=== PATIENT | male | born 1940 | race Caucasian/White ===

== ENCOUNTER 2021-01-24 15:29 | Inpatient (IN) ==
[2021-01-24] MEDS ORDERED: SODIUM CHLORIDE 0.9% 1000ML 1,000 ML IV STA (15:37)
[2021-01-24] MEDS ORDERED: MoRPHine SULFATE 4 MG/ML 1 ML CARP\\VIAL IV PRN (15:37)
[2021-01-24] MEDS ORDERED: ONDANSETRON INJ 2 MG/ML 2 ML VIAL IV STA (15:37)
--- NOTE | 2021-01-24 15:41 | Emergency Department Note ---
Impression & Plan Abdominal pain, Acute duodenitis, Cancer, metastatic to liver, Abnormal LFTs ED Provider Note NAME: TRACY RIGGS AGE: 80 SEX: M : 1940 ARRIVES VIA: Ambulance INFORMANT: Patient, the patient's son ED PROVIDER(S): Samy Sethi DO CHIEF COMPLAINT: Back pain HPI: The patient is an 80-year-old male who presented to the emergency department for an evaluation of low back pain. The patient was seen at his primary care physician's office and was referred to the emergency department. The patient arrived via ambulance. The patient states that he has been having problems with right flank pain for the last couple weeks. He continues to work. The patient denies having any fever. He has no recent trauma. He denies hav ing any nausea or vomiting. He denies having any black or bloody bowel movements. The patient states that the pain goes around to his right lower quadrant. He denies having any lower extremity swelling or pain. He has been taking [id number] medication without relief. The patient states that his pain is moderate to severe and worsens with ambulation as well as palpation over the right lower quadrant. ROS: See above HPI for pertinent positives & negatives. A total of 10 systems reviewed and were otherwise negative. PAST MEDICAL HISTORY: See Below PAST SURGICAL HISTORY: See Below FAMILY HISTORY: See Below SOCIAL HISTORY: See Below HOME MEDICATIONS: See Below ALLERGIES: See Below VITALS: See Below PHYSICAL EXAMINATION: GENERAL: The patient is awake and alert. He is somewhat anxious appearing. EYES: The conjunctivae are clear. The pupils are round and reactive. EARS, NOSE, MOUTH AND THROAT: The nose is without any evidence of any deformity. Mucous membranes are moist. Tongue is midline. NECK: The neck is nontender and supple. RESPIRATORY: Diminished breath sounds were noted at both bases. There were rales at the right base. There is no tachypnea or conversational dyspnea. CARDIOVASCULAR: Regular rate and rhythm noted there no murmurs rubs or gallops normal S1 normal S2. GASTROINTESTINAL: The abdomen is mildly distended. There is diffuse tenderness to palpation with guarding in the right lower quadrant. BACK: No midline tenderness or or step-off noted range of motion in flexion extension as well as rotation no signs of muscle spasm noted MUSCULOSKELETAL/EXTREMITIES: There is no evidence of gross deformity full range of motion is noted in the hips and shoulders. SKIN: Trace pedal edema was noted bilaterally. NEUROLOGIC: Patient is awake alert and oriented x 3. MEDICAL DECISION MAKING: The patient is an 80-year-old male who presented to the emergency department by ambulance for an evaluation of back pain and belly pain. The patient had very significant abdominal pain on my physical exam. His physical exam was consistent with possible surgical abdomen. He was guarding. He was treated with proton pump inhibitor and H2 gloria in the emergency department. He was also ordered IV pain medication but the patient did not wish to have any pain medication. I discussed the patient's laboratory and radiographic studies with him. His chest x-ray did show signs of pulmonary nodules. There was also abnormalities on CAT scan which would lead me to believe there is a primary ca rcinoma that is metastatic to the liver and lungs. The patient currently does not have a primary care physician. [facility] have agreed to evaluate the patient in the emergency department for further management and disposition. I did discuss the patient's condition with him. He is agreeable to the plan. Triage Nursing notes reviewed. Prior medical records reviewed Vital Signs: reviewed and remarkable for hypertension. Differential diagnosis: Etiologies such as appendicitis, diverticulitis, obstruction, inflammatory bowel disease, renal colic, PUD, biliary pathology, pancreatitis, mesenteric ischemia, aortic pathology, infections, genitourinary, UTI, perforated viscus, as well as others were entertained. ER treatment provided: See below Diagnostics interpreted by me: ECG: EKG was obtained in the emergency department. My interpretation is normal sinus rhythm at 80 bpm. There is no ectopy. There was no acute ST segment abnormalities noted. No previous tracing was available. Cardiac Monitoring: An order was placed for continuous cardiac monitoring. The monitor shows a rate of 84 bpm with sinus rhythm. Laboratory studies: As stated above and show below. Imaging studies: See below Consultation(s): I discussed this case with Dr. Vang who [facility] Past Med/Surg History Surgical History [place] teeth extracted Social History Smoking Status: Never smoker Hx Alcohol Use: No Hx Substance Use: No marital status: / Feels Safe at Home: Yes Childhood Exposure to Second-Hand Smoke: Yes Allergies Allergies Allergy/AdvReac Type Severity Reaction Status Date / Time Penicillins Allergy Unknown Verified 01/24/21 17:06 Home Meds Home Medications Medication Instructions Recorded Confirmed No Known Home Medications 01/24/21 01/24/21 Results & Data (ED) Vital Signs Vital Signs - 24 hr 01/24/21 15:35 01/24/21 15:49 01/24/21 17:06 Temperature 36.7 C Temperature Source Oral Pulse Rate 86 Pulse Rate [Finger] 81 Pulse Rate from SpO2 Sensor Respiratory Rate 16 16 Respiratory Effort / Characteristics Non-Labored Respiratory Depth Normal Blood Pressure 163/115 H Blood Pressure [Right Arm] 158/78 H Blood Pressure Mean 131 Blood Pressure Mean [Right Arm] 104 Pulse Oximetry 94 97 97 Oxygen Delivery Method Room Air Sepsis Recent Fever Within 48 Hours No Sepsis New/Unexplained Change in Mental Status No Sepsis Action Taken by Nursing No Action Required 01/24/21 18:00 01/24/21 18:33 01/24/21 18:38 Temperature Temperature Source Pulse Rate 83 84 Pulse Rate [Finger] 87 85 Pulse Rate from SpO2 Sensor 83 85 Respiratory Rate 18 16 16 Respiratory Effort / Characteristics Respiratory Depth Blood Pressure 159/84 H Blood Pressure [Right Arm] 159/84 H 156/77 H Blood Pressure Mean 109 Blood Pressure Mean [Right Arm] 109 103 Pulse Oximetry 90 94 93 Oxygen Delivery Method Room Air Room Air Sepsis Recent Fever Within 48 Hours Sepsis New/Unexplained Change in Mental Status Sepsis Action Taken by Nursing 01/24/21 19:00 Temperature Temperature Source Pulse Rate 89 Pulse Rate [Finger] Pulse Rate from SpO2 Sensor 89 Respiratory Rate 20 Respiratory Effort / Characteristics Respiratory Depth Blood Pressure 152/89 H Blood Pressure [Right Arm] Blood Pressure Mean 110 Blood Pressure Mean [Right Arm] Pulse Oximetry 90 Oxygen Delivery Method Sepsis Recent Fever Within 48 Hours Sepsis New/Unexplained Change in Mental Status Sepsis Action Taken by Snf Medications Current Medication List: was personally reviewed by me Laboratory Data Attestation: I reviewed the patient's lab results. Result diagrams: 01/24/21 15:43 01/24/21 15:43 Lab Results 01/24/21 01/24/21 01/24/21 Range/Units 15:40 15:40 15:43 WBC 11.54 H (4.8-10.8) K/uL RBC 4.35 L (4.7-6.1) M/uL Hgb 14.1 (14.0-18.0) g/dL POC Hgb (14.0-18.0) g/dl Hct 40.5 L (42-52) % POC Hct (42-52) % MCV 93.1 (80-100) fL MCH 32.4 (25-34) pg MCHC 34.8 (32-36) g/dL RDW Std Deviation 46.3 (36.4-46.3) fL RDW Coeff of Celine 13.6 (11.5-14.5) % Plt Count 208 (130-400) K/uL MPV 9.3 (7.4-10.4) fL Immature Gran % (Auto) 2.4 % Neut % (Auto) 74.6 % Lymph % (Auto) 9.6 % Converse % (Auto) 10.6 % Eos % (Auto) 2.3 % Baso % (Auto) 0.5 % Neut # (Auto) 8.61 H (1.4-6.5) K/uL Lymph # (Auto) 1.11 L (1.2-3.4) K/uL Converse # (Auto) 1.22 H (0.11-0.59) K/uL Eos # (Auto) 0.26 (0-0.5) K/uL Baso # (Auto) 0.06 (0-0.2) K/uL Immature Gran # (Auto) 0.28 H (0.00-0.02) K/uL PT (9.0-12.0) Seconds INR (0.9-1.1) APTT (21.0-31.0) Seconds PTT Ratio POC Sodium (135-144) mmol/L Sodium (136-145) mmol/L POC Potassium (3.3-5.0) mmol/L Potassium (3.5-5.1) mmol/L POC Chloride (101-112) mmol/L Chloride (98-107) mmol/L Carbon Dioxide (21-32) mmol/L POC Total CO2 (24-31) mmol/L Anion Gap (3-11) POC Anion Gap (16-25) mmol/L POC BUN (7-18) mg/dl BUN (7-18) mg/dl Creatinine (0.6-1.4) mg/dl POC Creatinine (0.6-1.3) mg/dl Est Cr Clr Drug Dosing ml/min Est GFR ( Amer) ml/min Est GFR (Non-Af Amer) ml/min BUN/Creatinine Ratio (10-20) Glucose (70-99) mg/dl POC Glucose (other) (70-99) mg/dl Calcium (8.5-10.1) mg/dl POC Ioniz Calcium Abdullahi (1.12-1.32) mmol/l Total Bilirubin (0.2-1) mg/dl AST (15-37) U/L ALT (12-78) U/L Alkaline Phosphatase (45-117) U/L Troponin I (0-0.045) ng/ml Total Protein (6.4-8.2) gm/dl Albumin (3.4-5.0) gm/dl Globulin (2.5-4.0) gm/dl Albumin/Globulin Ratio (0.9-2) Lipase (73-393) U/L COVID-19 Eval Order Covid19 at [facility] SARS-CoV-2 (PCR) NEGATIVE (Negative) 01/24/21 01/24/21 01/24/21 Range/Units 15:43 15:43 15:52 WBC (4.8-10.8) K/uL RBC (4.7-6.1) M/uL Hgb (14.0-18.0) g/dL POC Hgb 15.0 (14.0-18.0) g/dl Hct (42-52) % POC Hct 44 (42-52) % MCV (80-100) fL MCH (25-34) pg MCHC (32-36) g/dL RDW Std Deviation (36.4-46.3) fL RDW Coeff of Celine (11.5-14.5) % Plt Count (130-400) K/uL MPV (7.4-10.4) fL Immature Gran % (Auto) % Neut % (Auto) % Lymph % (Auto) % Converse % (Auto) % Eos % (Auto) % Baso % (Auto) % Neut # (Auto) (1.4-6.5) K/uL Lymph # (Auto) (1.2-3.4) K/uL Converse # (Auto) (0.11-0.59) K/uL Eos # (Auto) (0-0.5) K/uL Baso # (Auto) (0-0.2) K/uL Immature Gran # (Auto) (0.00-0.02) K/uL PT 11.9 (9.0-12.0) Seconds INR 1.2 H (0.9-1.1) APTT 31.0 (21.0-31.0) Seconds PTT Ratio 1.2 POC Sodium 137 (135-144) mmol/L Sodium 138 (136-145) mmol/L POC Potassium 4.9 (3.3-5.0) mmol/L Potassium 4.7 (3.5-5.1) mmol/L POC Chloride 104 (101-112) mmol/L Chloride 107 (98-107) mmol/L Carbon Dioxide 24 (21-32) mmol/L POC Total CO2 23 L (24-31) mmol/L Anion Gap 7.0 (3-11) POC Anion Gap 16.0 (16-25) mmol/L POC BUN 46 H (7-18) mg/dl BUN 42 H (7-18) mg/dl Creatinine 1.36 (0.6-1.4) mg/dl POC Creatinine 1.3 (0.6-1.3) mg/dl Est Cr Clr Drug Dosing 35.4 ml/min Est GFR ( Amer) 56.2 ml/min Est GFR (Non-Af Amer) 48.5 ml/min BUN/Creatinine Ratio 30.9 H (10-20) Glucose 125 H (70-99) mg/dl POC Glucose (other) 130 H (70-99) mg/dl Calcium 9.0 (8.5-10.1) mg/dl POC Ioniz Calcium Abdullahi 1.16 (1.12-1.32) mmol/l Total Bilirubin 0.6 (0.2-1) mg/dl AST 176 H (15-37) U/L ALT 94 H (12-78) U/L Alkaline Phosphatase 728 H (45-117) U/L Troponin I < 0.015 (0-0.045) ng/ml Total Protein 7.5 (6.4-8.2) gm/dl Albumin 2.7 L (3.4-5.0) gm/dl Globulin 4.8 H (2.5-4.0) gm/dl Albumin/Globulin Ratio 0.6 L (0.9-2) Lipase 98 (73-393) U/L COVID-19 Eval Order SARS-CoV-2 (PCR) (Negative) Administered Medications Sodium Chloride (Nss 1000ml) 1,000 mls @ 80 mls/hr IV .[id number] VICKY Stop: 01/25/21 09:18 Last Admin: 01/24/21 20:49 Dose: 80 mls/hr Documented by: [id number] Pantoprazole Sodium (Pantoprazole 40 Mg Tab) 40 mg PO BID VICKY Stop: 02/23/21 20:59 Last Admin: 01/24/21 21:51 Dose: 40 mg Documented by: [id number] Discontinued Medications Sodium Chloride (Nss 1000ml) 1,000 mls @ 999 mls/hr IV .[id number] STA Stop: 01/24/21 16:37 Last Infusion: 01/24/21 16:54 Dose: 0 mls/hr Documented by: [id number] Admin: 01/24/21 15:51 Dose: 999 mls/hr Documented by: [id number] Famotidine (Pepcid 20mg Iv Push) 20 mg in 5 mls @ 2.5 mls/min IV NOW STA Stop: 01/24/21 17:14 Last Admin: 01/24/21 18:38 Dose: 2.5 mls/min Documented by: [id number] Pantoprazole Sodium 40 mg/ (Syringe) 10 mls @ 5 mls/min IV NOW ONE Stop: 01/24/21 17:14 Last Admin: 01/24/21 19:46 Dose: 5 mls/min Documented by: [id number] Ioversol (Optiray 320 100ml) 92 ml IV ONCE ONE Stop: 01/24/21 16:37 Last Admin: 01/24/21 16:37 Dose: 92 ml Documented by: [id number] Ondansetron HCl (Ondansetron Inj 2 Mg/Ml 2 Ml Vial) 4 mg IV NOW STA Stop: 01/24/21 15:38 Last Admin: 01/24/21 15:52 Dose: Not Given Documented by: [id number] Imaging Data Radiologist's Impression: Abdomen/Pelvis CT 01/24/21 15:[address] WITH IV CONTRAST CT DOSE: 288.27 mGy.cm HISTORY: Right lower quadrant abdominal pain. TECHNIQUE: Multiaxial CT images of the abdomen and pelvis were performed following the use of intravenous contrast. A dose lowering technique was utilized adhering to the principles of ALARA. COMPARISON STUDY: None. FINDINGS: There is necrotic mediastinal and right hilar lymphadenopathy. Dominant subcarinal lymph node measures 4.1 x 2.0 cm. Trace right pleural effusion is noted. Fibrotic changes at the lung bases are present. Multiple scattered pulmonary nodules/masses seen within the lung bases most pronounced within the right lung base. Dominant necrotic mass within the periphery the right middle lobe measures 3.4 cm. No pneumoperitoneum. No pneumatosis. No suspicious lytic or blastic osseous lesions. There is distal paraesophageal, ga strohepatic, periportal, and retroperitoneal lymphadenopathy. Dominant necrotic portacaval lymph node measures 3.7 x 1.5 cm. Bilateral renal cysts are noted. No hydronephrosis. Normal adrenal glands, spleen, and pancreas. Multiple ill- defined heterogeneous enhancing lesion seen scattered throughout the liver. This is consistent with metastatic disease. Dominant lesion within the right hepatic lobe measures 4 cm. Mild circumferential thickening within the first and second portions of the duodenum with mild adjacent fat stranding. No perforation or abscess. This could represent peptic ulcer disease, a duodenitis, or less likely a duodenal lesion. Mild gallbladder wall edema. The main portal vein is patent. Normal caliber abdominal aorta. The bladder is unremarkable. The prostate gland is mildly enlarged. Small fat-containing bilateral inguinal hernias are noted. Colonic diverticulosis. No evidence for acute diverticulitis. No evidence for bowel obstruction. Normal appendix. IMPRESSION: 1. Necrotic lymphadenopathy within the chest and upper abdomen with multiple pulmonary nodules/masses and multiple hepatic masses. This consistent with metastatic disease. 2. Proximal duodenal thickening with mild adjacent fat stranding. This favors peptic ulcer disease or a duodenitis. A duodenal lesion is considered less likely but not entirely excluded. Follow-up endoscopy can be used for further evaluation. No perforation identified. 3. Trace right pleural effusion. 4. Mild gallbladder wall edema. 5. No evidence for bowel obstruction. ACT 112: Negative or not required by law. Electronically signed by: Anirudh العراقي M.D. 01/24/2021 5:00 PM Chest X-Ray 01/24/21 15:37 XR chest 1V portable HISTORY: Right-sided pain. COMPARISON: None. FINDINGS: No pneumothorax. No pleural effusions. There are patchy bibasilar densities and mild interstitial thickening. The heart is normal in size. No evidence for pulmonary edema. Mild right apical pleural thickening is noted. Possible 9 mm nodule within the periphery the right lower lung zone abutting the minor fissure. IMPRESSION: 1. Nonspecific patchy bibasilar densities. This could represent atelectasis or pneumonia. This will be better assessed on the same day abdomen and pelvis CT. 2. Possible 9 mm nodule within the periphery the right lower lung zone abutting the minor fissure. This will also likely be assessed on the same day abdomen and pelvis CT. ACT 112: Negative or not required by law. Electronically signed by: Anirudh العراقي M.D. 01/24/2021 4:49 PM Discharge Plan Visit Data Chief Complaint: Back Injury/Pain Stated Complaint: BACK PAIN ED Provider: Samy Sethi Discharge Problem: Abdominal pain, Acute duodenitis, Cancer, metastatic to liver, Abnormal LFTs Patient Disposition: Admitted As Inpatient Condition: Good Discharge Instructions Interventions: ED Discharge Assessment Last Done: 01/24/21 20:20
[2021-01-24 15:52] LABS: Basophils # (auto) 0.06 K/uL (0-0.2); Basophils % (auto) 0.5 %; Eosinophils # (auto) 0.26 K/uL (0-0.5); Eosinophils % (auto) 2.3 %; Hematocrit (blood only) 40.5 % (42-52); Hemoglobin 14.1 g/dL (14.0-18.0); Immature Granulocytes # (auto) 0.28 K/uL (0.00-0.02); Immature Granulocytes % (auto) 2.4 %; Lymphocytes # (auto) 1.11 K/uL (1.2-3.4); Lymphocytes % (auto) 9.6 %; Mean Corpuscular Hemoglobin 32.4 pg (25-34); Mean Corpuscular Hgb Conc 34.8 g/dL (32-36); Mean Corpuscular Volume 93.1 fL (80-100); Mean Platelet Volume 9.3 fL (7.4-10.4); Monocytes # (auto) 1.22 K/uL (0.11-0.59); Monocytes % (auto) 10.6 %; Neutrophils # (auto) 8.61 K/uL (1.4-6.5); Neutrophils % (auto) 74.6 %; Platelet Count 208 K/uL (130-400); RDW Coefficient of Variation 13.6 % (11.5-14.5); RDW Standard Deviation 46.3 fL (36.4-46.3); Red Blood Count 4.35 M/uL (4.7-6.1); White Blood Count 11.54 K/uL (4.8-10.8)
[2021-01-24 16:05] LABS: iSTAT Creatinine 1.3 mg/dl (0.6-1.3); iSTAT Ionized Calcium 1.16 mmol/l (1.12-1.32); iSTAT Potassium 4.9 mmol/L (3.3-5.0)
[2021-01-24 16:11] LABS: INR 1.2 (0.9-1.1); Partial Thromboplastin Ratio 1.2; Prothrombin Time 11.9 Seconds (9.0-12.0)
[2021-01-24 16:17] LABS: Alanine Aminotransferase 94 U/L (12-78); Albumin Level 2.7 gm/dl (3.4-5.0); Aspartate Aminotransferase 176 U/L (15-37); BUN Creatinine Ratio 30.9 (10-20); Blood Urea Nitrogen 42 mg/dl (7-18); Carbon Dioxide 24 mmol/L (21-32); Chloride 107 mmol/L (98-107); Creatinine Clr Calc Pharmacy 35.4 ml/min; Est GFR (African American) 56.2 ml/min; Est GFR (Non-African American) 48.5 ml/min; Glucose 125 mg/dl (70-99); Lipase 98 U/L (73-393); Potassium 4.7 mmol/L (3.5-5.1); Sodium 138 mmol/L (136-145)
[2021-01-24 16:23] LABS: Albumin Globulin Ratio 0.6 (0.9-2); Alkaline Phosphatase 728 U/L (45-117); Bilirubin,Total 0.6 mg/dl (0.2-1); Globulin 4.8 gm/dl (2.5-4.0); Total Protein 7.5 gm/dl (6.4-8.2); Troponin I < 0.015 ng/ml (0-0.045)
[2021-01-24] MEDS ORDERED: OPTIRAY 320 100ml IV ONE (16:36)
--- NOTE | 2021-01-24 16:51 | XRay Report ---
XR chest 1V portable HISTORY: Right-sided pain. COMPARISON: None. FINDINGS: No pneumothorax. No pleural effusions. There are patchy bibasilar densities and mild inters titial thickening. The heart is normal in size. No evidence for pulmonary edema. Mild right apical pl eural thickening is noted. Possible 9 mm nodule within the periphery the right lower lung zone abutti ng the minor fissure. IMPRESSION: 1. Nonspecific patchy bibasilar densities. This could represent atelectasis or pneumonia. This will b e better assessed on the same day abdomen and pelvis CT. 2. Possible 9 mm nodule within the periphery the right lower lung zone abutting the minor fissure. Th is will also likely be assessed on the same day abdomen and pelvis CT. ACT 112: Negative or not required by law. Electronically signed by: Anirudh العراقي M.D. 01/24/2021 4:49 PM
--- NOTE | 2021-01-24 17:02 | CT Scan Report ---
ABDOMEN AND PELVIS CT WITH IV CONTRAST CT DOSE: 288.27 mGy.cm HISTORY: Right lower quadrant abdominal pain. TECHNIQUE: Multiaxial CT images of the abdomen and pelvis were performed following the use of intrave nous contrast. A dose lowering technique was utilized adhering to the principles of ALARA. COMPARISON STUDY: None. FINDINGS: There is necrotic mediastinal and right hilar lymphadenopathy. Dominant subcarinal lymph no de measures 4.1 x 2.0 cm. Trace right pleural effusion is noted. Fibrotic changes at the lung bases a re present. Multiple scattered pulmonary nodules/masses seen within the lung bases most pronounced wi thin the right lung base. Dominant necrotic mass within the periphery the right middle lobe measures 3.4 cm. No pneumoperitoneum. No pneumatosis. No suspicious lytic or blastic osseous lesions. There is distal paraesophageal, gastrohepatic, periportal, and retroperitoneal lymphadenopathy. Dominant necr otic portacaval lymph node measures 3.7 x 1.5 cm. Bilateral renal cysts are noted. No hydronephrosis. Normal adrenal glands, spleen, and pancreas. Multiple ill-defined heterogeneous enhancing lesion see n scattered throughout the liver. This is consistent with metastatic disease. Dominant lesion within the right hepatic lobe measures 4 cm. Mild circumferential thickening within the first and second por tions of the duodenum with mild adjacent fat stranding. No perforation or abscess. This could represe nt peptic ulcer disease, a duodenitis, or less likely a duodenal lesion. Mild gallbladder wall edema. The main portal vein is patent. Normal caliber abdominal aorta. The bladder is unremarkable. The pro state gland is mildly enlarged. Small fat-containing bilateral inguinal hernias are noted. Colonic di verticulosis. No evidence for acute diverticulitis. No evidence for bowel obstruction. Normal appendi x. IMPRESSION: 1. Necrotic lymphadenopathy within the chest and upper abdomen with multiple pulmonary nodules/masses and multiple hepatic masses. This consistent with metastatic disease. 2. Proximal duodenal thickening with mild adjacent fat stranding. This favors peptic ulcer disease or a duodenitis. A duodenal lesion is considered less likely but not entirely excluded. Follow-up endos copy can be used for further evaluation. No perforation identified. 3. Trace right pleural effusion. 4. Mild gallbladder wall edema. 5. No evidence for bowel obstruction. ACT 112: Negative or not required by law. Electronically signed by: Anirudh العراقي M.D. 01/24/2021 5:00 PM
[2021-01-24] MEDS ORDERED: PANTOprazole 40 MG in SYRINGE 0 ML IV ONE (17:13)
[2021-01-24] MEDS ORDERED: FAMOTIDINE 20MG IV PUSH 20 MG/5 ML SYR IV STA (17:13)
--- NOTE | 2021-01-24 17:58 | History & Physical Report ---
Date of Service January 24, 2021 Assessment & Plan (1) Abdominal pain: Plan: 80yo male without significant PMH presents with a dcn-sy-vjt-week history of progressively worsening right-sided abdominal and back pain, with CT findings concerning for metastatic disease. Patient is stable at this time. Findings discussed with patient; patient is interested in further workup to determine what type of treatment options are possible. Abdominal pain, back pain Patient with 1-2 week history of worsening right abdominal and back pain Patient afebrile, with mild leukocytosis, no anemia, Mildly elevated INR to 1.2, elevated LFTs (AST 176, ALT 94, alk phos 728) CXR showed: * Nonspecific patchy bibasilar densities suggestive of atelectasis or pneumonia * Possible 9mm nodule within the periphery the right lower lung zone abutting the minor fissure CT abdomen/pelvis showed: * Necrotic lymphadenopathy within the chest and upper abdomen with multiple pulmonary nodules/masses and multiple hepatic masses consistent with metastatic disease * Proximal duodenal thickening with mild adjacent fat stranding suggestive of peptic ulcer disease vs duodenitis vs duodenal lesion, no perforation identified * Trace right pleural effusion * Mild gallbladder wall edema * No evidence for bowel obstruction Discussed high degree of suspicion for metastatic disease; patient is interested in further workup to determine treatment options before deciding on goals of care Consult GI for possible endoscopy +/- liver mass biopsy Consult heme/onc Pain control with morphine IV 2mg q1h prn Famotidine IV 20mg bid, pantoprazole IV 40mg bid Zofran prn nausea Trend CBC, CMP daily Lovenox 40mg q24h Pulmonary nodules Seen on CXR and CT abdomen/pelvis as above Suspect leukocytosis is secondary to duodenal inflammation, malignancy, or demargination 2/2 dry heaves, low suspicion for pneumonia at this time Consider pulmonary consult pending further evaluation FEN: regular diet, NPO at midnight for possible endoscopy Code status: full code, I discussed this with patient DVT ppx: lovenox Held home meds: none Isolation: none Consults: gastroenterology PT/OT: ordered Dispo: med/surg (2) Pulmonary nodule: (3) Duodenal disease: (4) Back pain: (5) Weight loss: (6) Concern about cancer without diagnosis: History of Present Illness Chief Complaint: Back pain, abdominal pain Primary Care Provider: Edith Silvina, PA-C 80yo male without significant PMH presents with a ohf-au-ggk-week history of progressively worsening right-sided abdominal and back pain. Pain is worsened with walking and improved with laying down. Aleve initially helped his pain but made him nauseous and so he stopped taking it. Hasn't vomited. No difficulty with urination or bowel movements, hasn't noticed bloody or dark tarry BMs. Patient does endorse a couple weeks of fatigue and a 10lb weight loss over the past week or so. Patient has had a mild intermittent cough over the past week, occasionally productive of brown sputum but recently has been dry. Endorses mild SOB 2-3 days ago which resolved after one day. Patient denies CP, palpitations, numbness, tingling, or weakness. Patient's mother of a stroke and father in a farming accident. Patient has no known personal or family history of cancer. Patient is a never-smoker, does not drink alcohol, and denies recreational substance use. Allergies Allergy/AdvReac Type Severity Reaction Status Date / Time Penicillins Allergy Unknown Verified 01/24/21 17:06 Home Medications Medication Instructions Recorded Confirmed Type No Known Home Medications 01/24/21 01/24/21 History Past Med/Surg History Surgical History [place] teeth extracted Social History Smoking Status: Never smoker Hx Alcohol Use: No Hx Substance Use: No marital status: / Feels Safe at Home: Yes Childhood Exposure to Second-Hand Smoke: Yes Review of Systems Review of Systems: See HPI Physical Exam Physical Exam: Constitutional: well-appearing elderly male in no acute distress, laying in bed HEENT: NCAT, no conjunctival injection, no scleral icterus CV: regular rhythm, no murmur appreciated, extremities well-perfused, no LE edema Resp: no increased work of breathing, crackles appreciated in all lung whittaker, right worse than left, posterior whittaker worse than anterior, left lung sounds slightly diminished, faint end-expiratory wheeze heard in right anterior field GI: soft, nondistended, mild tenderness to RUQ and RLQ palpation, no LUQ or LLQ tenderness, BS present MSK: back nontender, no flank tenderness, distal half of right thumb amputated Skin: erythematous rash of left cheek Neuro: AOx4, CN2-12 grossly intact, no focal neurological deficits appreciated Results & Data Results & Data ([facility]) Vital Signs (Past 12 Hours) Vital Signs Temp Pulse Pulse Resp BP BP Pulse Ox 01/24/21 17:06 81 16 158/78 H 97 01/24/21 15:49 97 01/24/21 15:35 36.7 C 86 16 163/115 H 94 Supervising Physician Co-Signing Physician Notes Patient seen and examined, chart reviewed, case discussed with Dr. Tom and I agree with the assessment and plan as above except as otherwise noted above. Kamari Grajeda is an 80-year-old male with no past medical history does not follow regularly with PCP who presents with worsening abdominal pain and he was admitted for pain control and additional evaluation and management after CT shows multiple pulmonary nodules/masses and multiple hepatic masses. Patient reports that he was overall feeling well and at his normal healthy [facility] 6 months ago with no issues. Reports he noticed the last 2 weeks he started rapidly losing weight and has lost 10 pounds over 2 weeks, thinks his weight was steady 6 months ago. Reports in the last several days he has had right-sided back pain and tenderness to palpation at the right lower abdomen with some distention and bloating. He reports he had intermittent nausea, and has had some dry heaves daily including today but no vomiting. Reports his bowel movements are normally once a day soft and brown, occasionally with constipation, but have not been bloody or black. He reports his appetite has been good up until he started feeling ill and this past week, and has not had any pain, diarrhea, or other symptoms incited or worsened by meals and has not had a decreased appetite until the past week. He denies a personal or family history of colon cancer or other cancer, but notes he has never had a colonoscopy. 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 He reports he has no current or former tobacco use, no alcohol use, and does not use any recreational substances. General: A&Ox3. NAD. Cooperative. Appears thin. Small telangiectasias of the right cheekbone and left jawline appreciated. No ulcerations or thickened skin borders. HEENT: Atraumatic, normocephalic. Pupils equal and reactive to light and accommodation. Visual acuity and hearing grossly intact. Pulm: CTAB A&P. -wheezes, -rales, -rhonchi. Symmetrical chest rise. No increase work of breathing. No respiratory distress. Cardiac: RRR, -mrg. Radial pulses intact and symmetrical. Abdominal: Abdomen soft, focally tender to palpation at right lower/right upper quadrant without rebound tenderness. Back nontender to palpation, no CVA tenderness. 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 Sensation to soft touch intact in fingers and toes bilaterally. All labs and images reviewed Abdominal/low back pain Suspect referred pain 2/2 extensive abdominal masses just above malignancy with extensive metastasis Morphine IV 2 mg Q3H as needed, hold for altered mental status or signs of narcosis Pulmonary, hepatic masses CT A/P: Necrotic lymphadenopathy within the chest and upper abdomen with multiple pulmonary nodules/masses and multiple hepatic masses. This consistent with metastatic disease. Proximal duodenal thickening with mild adjacent fat stranding. This favors peptic ulcer disease or a duodenitis. A duodenal lesion is considered less likely but not entirely excluded. Follow-up endoscopy can be used for further evaluation. No perforation identified. Trace right pleural effusion. Mild gallbladder wall edema. No evidence for bowel obstruction. -Unclear primary, ? Adenocarcinoma versus primary liver GI consulted, heme-onc consulted, anticipate need for endoscopy and biopsy Given high bleed risk recommend Lovenox DVT prophylaxis Discussed goals of care with patient, understands the extensive masses suggestive of metastatic disease and would like to pursue diagnostic testing with a goal of potential treatment at this time. PPI plus famotidine Pain control as noted Leukocytosis Mild, patient with dry heaving prior to draw CT findings with potential for pneumonia, but patient without cough/pulmonary symptoms. Suspect CT reflective of underlying atelectasis, leukocytosis due to demargination Follow clinically, defer antibiotics at this time Transaminitis, elevated alkaline phosphatase Without hyperbilirubinemia Suspect 2/2 liver lesions suspicious for malignancy Trend daily, defer viral panel at this time Goals of care/CODE STATUS: Discussed findings and guarded prognosis with patient. He reports he understands these findings, and would like to pursue further diagnostic evaluation with the intention to pursue treatment. Full code. Diet: Regular as tolerated, n.p.o. at midnight. NSS 80 cc/h maintenance. CBC/CMP daily DVT prophylaxis: Lovenox Resident Activity Tracking Resident Involvement: Resident Care Provided Care Provided: Adult Hospital Medicine
--- NOTE | 2021-01-24 18:07 | Electrocardiogram Report ---
Test Reason : Blood Pressure : / mmHG Vent. Rate : 080 BPM Atrial Rate : 080 BPM P-R Int : 142 ms QRS Dur : 084 ms QT Int : 350 ms P-R-T Axes : 054 019 021 degrees QTc Int : 403 ms Normal sinus rhythm Normal ECG No previous ECGs available Confirmed by Zana Wylie ([id number]) on 01/24/2021 6:07:39 PM Referred By: ED Confirmed By:Gurmeet Wylie
[2021-01-24] MEDS ORDERED: ALUMINUM/MAGNESIUM SUSP 30 ML UDC PO PRN (20:49)
[2021-01-24] MEDS ORDERED: POLYETHYLENE (MIRALAX) 17 GM PACK PO PRN (20:49)
[2021-01-24] MEDS ORDERED: MAGNESIUM HYDROXIDE SUSP 30 ML UDC PO PRN (20:49)
[2021-01-24] MEDS ORDERED: SODIUM CHLORIDE 0.9% 1000ML 1,000 ML IV SCH (20:49)
[2021-01-24] MEDS ORDERED: ONDANSETRON INJ 2 MG/ML 2 ML VIAL IV PRN (20:49)
[2021-01-24] MEDS: PANTOprazole 40 MG TAB PO SCH (21:51)
[2021-01-25 08:26] LABS: Basophils # (auto) 0.07 K/uL (0-0.2); Basophils % (auto) 0.6 %; Eosinophils # (auto) 0.38 K/uL (0-0.5); Eosinophils % (auto) 3.2 %; Hematocrit (blood only) 41.5 % (42-52); Hemoglobin 14.1 g/dL (14.0-18.0); Immature Granulocytes # (auto) 0.31 K/uL (0.00-0.02); Immature Granulocytes % (auto) 2.6 %; Lymphocytes # (auto) 1.22 K/uL (1.2-3.4); Lymphocytes % (auto) 10.2 %; Mean Corpuscular Hemoglobin 31.8 pg (25-34); Mean Corpuscular Volume 93.7 fL (80-100); Mean Platelet Volume 9.6 fL (7.4-10.4); Monocytes # (auto) 1.37 K/uL (0.11-0.59); Monocytes % (auto) 11.5 %; Neutrophils # (auto) 8.59 K/uL (1.4-6.5); Neutrophils % (auto) 71.9 %; Platelet Count 215 K/uL (130-400); RDW Coefficient of Variation 13.6 % (11.5-14.5); RDW Standard Deviation 46.7 fL (36.4-46.3); Red Blood Count 4.43 M/uL (4.7-6.1); White Blood Count 11.94 K/uL (4.8-10.8)
[2021-01-25 08:29] LABS: Appearance Urine Clear (Clear); Bacteria Urine Automated Negative (Negative); Bilirubin Urine Negative (Negative); Blood Urine Negative (Negative); Color Urine Yellow; Glucose Urine UA Negative (Negative); Ketones Urine 1+ (Negative); Leukocyte Esterase Urine Negative (Negative); Nitrite Urine Negative (Negative); Protein Urine Trace (Negative); RBC Urine Automated 0-4 /hpf (0-4); Specific Gravity Urine 1.024 (1.000-1.030); Urobilinogen Urine Negative (Negative)
[2021-01-25 08:53] LABS: Albumin Level 2.4 gm/dl (3.4-5.0); BUN Creatinine Ratio 26.4 (10-20); Calcium 8.7 mg/dl (8.5-10.1); Creatinine Clr Calc Pharmacy 42.1 ml/min; Est GFR (Non-African American) 55.3 ml/min; Potassium 4.4 mmol/L (3.5-5.1)
[2021-01-25 08:54] LABS: Albumin Globulin Ratio 0.5 (0.9-2); Bilirubin,Total 0.7 mg/dl (0.2-1); Globulin 4.4 gm/dl (2.5-4.0); Total Protein 6.8 gm/dl (6.4-8.2)
[2021-01-25] MEDS: ENOXAPARIN INJ 40 MG/0.4 ML SYR SQ SCH (10:29)
[2021-01-25] MEDS: PANTOprazole 40 MG TAB PO SCH ×2 (10:29→20:29)
[2021-01-25] MEDS: FAMOTIDINE 20 MG in SYRINGE 3 ML IV SCH ×2 (10:30→20:29)
--- NOTE | 2021-01-25 16:40 | Gastrointestinal Consultation ---
Date of Consultation January 25, 2021 Assessment & Plan (1) Cancer, metastatic to liver: Need to establish the diagnosis by tissue biopsy hence will plan for EUS with FNA on Saturday 01/27. Meanwhile he can be on clear liquid diet. (2) Abdominal pain: (3) Acute duodenitis: (4) Abnormal LFTs: Likely related to Liver metastasis. (5) Weight loss: History of Present Illness Reason for Consultation: Abnormal CT scan Attending Physician: Jen Hopkins DO History of Present Illness 80 years old male patient with no prior medical history, no established healthcare maintenance, presented with abdominal pain, back pain and weight loss for 2 weeks. Pain is dull, generalized, intermittent, associated with nausea but no vomiting, no diarrhea or constipation. Labs showed mildly elevated LFTs and ALP, normal bilirubin, imaging showed multiple enlarged LN, liver and lung ma sses consistent with metastatic cancer. 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 Other Information That Helps Us Care for You: No Feels Safe at Home: Yes Safety Concerns: Feels Safe At This Time Childhood Exposure to Second-Hand Smoke: Yes Assistive Devices: Denture - Upper and Glasses Assistive Devices Comment: Upper partial. Review of Systems Constitutional: + weight loss; no fever, no chills and no fatigue Eyes: no eye pain and no worsening vision Ear, Nose, Mouth, Throat: no tinnitus, no dizziness, no nasal discharge and no epistaxis Respiratory: no cough, no dyspnea, no dyspnea on exertion and no wheezing Cardiovascular: no chest pain, no orthopnea, no palpitations and no edema Gastrointestinal: as per Subjective / HPI Musculoskeletal: no stiffness and no myalgia Neurologic: no localized weakness, no paralysis, no tremor(s) and no headache(s) Endocrine: no polydipsia and no polyuria Hematologic / Lymphatic: no easy bleeding and no night sweats Physical Exam Constitutional: + well hydrated, cooperative and comfortable Eyes: PERRL, conjunctivae normal, anicteric sclerae ENMT: external ear and nose normal, oropharynx normal Neck: normal visual inspection and trachea midline Respiratory: normal respiratory effort, lungs clear to auscultation Auscultation: no wheezes Cardiovascular: RRR, no murmur, no edema Gastrointestinal (Abdomen): normal bowel sounds, soft, nontender, no hepatosplenomegaly Musculoskeletal: no cyanosis or clubbing, extremities motor strength 5/5 Skin: no rashes, warm and dry Neurologic: awake; no focal motor deficits Motor/Sensory: no tremor Results & Data ([facility]) Vital Signs (Past 12 Hours) Vital Signs Temp Pulse Resp BP Pulse Ox 01/25/21 16:03 36.6 C 87 18 159/71 H 94 01/25/21 08:01 36.7 C 89 18 155/75 H 90 Laboratory Results Laboratory Results - last 24 hr 01/24/21 01/25/21 01/25/21 15:40 07:37 07:37 WBC 11.94 H RBC 4.43 L Hgb 14.1 Hct 41.5 L MCV 93.7 MCH 31.8 MCHC 34.0 RDW Std Deviation 46.7 H RDW Coeff of Celine 13.6 Plt Count 215 MPV 9.6 Immature Gran % (Auto) 2.6 Neut % (Auto) 71.9 Lymph % (Auto) 10.2 [place] % (Auto) 11.5 Eos % (Auto) 3.2 Baso % (Auto) 0.6 Neut # (Auto) 8.59 H Lymph # (Auto) 1.22 Eagle # (Auto) 1.37 H Eos # (Auto) 0.38 Baso # (Auto) 0.07 Immature Gran # (Auto) 0.31 H Sodium 140 Potassium 4.4 Chloride 110 H Carbon Dioxide 23 Anion Gap 7.0 BUN 32 H Creatinine 1.22 Est Cr Clr Drug Dosing 42.1 Est GFR ( Amer) 64.0 Est GFR (Non-Af Amer) 55.3 BUN/Creatinine Ratio 26.4 H Glucose 98 Calcium 8.7 Total Bilirubin 0.7 AST 167 H ALT 81 H Alkaline Phosphatase 632 H Total Protein 6.8 Albumin 2.4 L Globulin 4.4 H Albumin/Globulin Ratio 0.5 L Urine Color Urine Appearance Urine pH Ur Specific [place] Urine Protein Urine Glucose (UA) Urine Ketones Urine Blood Urine Nitrite Urine Bilirubin Urine Urobilinogen Ur Leukocyte Esterase Urine WBC (Auto) Urine RBC (Auto) U Hyaline Cast (Auto) U Epithel Cells (Auto) Urine Bacteria (Auto) SARS-CoV-2 (PCR) NEGATIVE 01/25/21 07:50 WBC RBC Hgb Hct MCV MCH MCHC RDW Std Deviation RDW Coeff of Celine Plt Count MPV Immature Gran % (Auto) Neut % (Auto) Lymph % (Auto) [place] % (Auto) Eos % (Auto) Baso % (Auto) Neut # (Auto) Lymph # (Auto) [place] # (Auto) Eos # (Auto) Baso # (Auto) Immature Gran # (Auto) Sodium Potassium Chloride Carbon Dioxide Anion Gap BUN Creatinine Est Cr Clr Drug Dosing Est GFR ( Amer) Est GFR (Non-Af Amer) BUN/Creatinine Ratio Glucose Calcium Total Bilirubin AST ALT Alkaline Phosphatase Total Protein Albumin Globulin Albumin/Globulin Ratio Urine Color Yellow Urine Appearance Clear Urine pH 5.0 Ur Specific [place] 1.024 Urine Protein Trace H Urine Glucose (UA) Negative Urine Ketones 1+ H Urine Blood Negative Urine Nitrite Negative Urine Bilirubin Negative Urine Urobilinogen Negative Ur Leukocyte Esterase Negative Urine WBC (Auto) 1-5 Urine RBC (Auto) 0-4 U Hyaline Cast (Auto) 1-5 U Epithel Cells (Auto) 5-10 H Urine Bacteria (Auto) Negative SARS-CoV-2 (PCR) Diagnostic Findings CT scan reviewed (1) Abdominal pain Abdominal location: generalized Qualified Code(s): R10.84 - Generalized abdominal pain
--- NOTE | 2021-01-25 20:07 | Hospitalist Progress Note ---
Date of Service January 25, 2021 Assessment & Plan (1) Abdominal pain: Plan: 80yo male without significant PMH presents with a nsu-az-ohs-week history of progressively worsening right-sided abdominal and back pain, with CT findings concerning for metastatic disease. Patient is stable at this time. Findings discussed with patient; patient is interested in further workup to determine what type of treatment options are possible. Abdominal pain, back pain Patient with 1-2 week history of worsening right abdominal and back pain Patient afebrile, with mild leukocytosis, no anemia, Mildly elevated INR to 1.2, improving but still elevated LFTs (AST today 167 from 176, ALT 81 today from 94, alk phos 632 today from 728) CXR showed: * Nonspecific patchy bibasilar densities suggestive of atelectasis or pneumonia * Possible 9mm nodule within the periphery the right lower lung zone abutting the minor fissure CT abdomen/pelvis showed: * Necrotic lymphadenopathy within the chest and upper abdomen with multiple pulmonary nodules/masses and multiple hepatic masses consistent with metastatic disease * Proximal duodenal thickening with mild adjacent fat stranding suggestive of peptic ulcer disease vs duodenitis vs duodenal lesion, no perforation identified * Trace right pleural effusion * Mild gallbladder wall edema * No evidence for bowel obstruction Discussed high degree of suspicion for metastatic disease; patient is interes nic in further workup to determine treatment options before deciding on goals of care Consult GI for possible endoscopy * EUS/FNA scheduled for 01/27 w/Dr. Marks * clear liquid diet until Wednesday at midnight---->NPO Consult heme/onc: will evaluate after results of EUS/FNA on Wednesday Pain control with morphine IV 2mg q1h prn Famotidine IV 20mg bid, pantoprazole IV 40mg bid Zofran prn nausea Trend CBC, CMP daily Lovenox 40mg q24h Pulmonary nodules Seen on CXR and CT abdomen/pelvis as above Suspect leukocytosis is secondary to duodenal inflammation, malignancy, or demargination 2/2 dry heaves, low suspicion for pneumonia at this time Pulm consult withheld until GI FNA on 01/27 provides information regarding source of primary neoplasm * Heme/onc will evaluate at that time FEN: clear liquid for now, NPO Wednesday at midnight: full code, I discussed this with patient DVT ppx: lovenox Held home meds: none Isolation: none Consults: gastroenterology (EUS/FNA scheduled for 01/27) PT/OT: ordered Dispo: med/surg (2) Pulmonary nodule: (3) Duodenal disease: (4) Back pain: (5) Weight loss: (6) Concern about cancer without diagnosis: Admission and Anticipated Discharge Date Admission Date: January 24, 2021 Supervising Physician Co-Signing Physician Notes Patient seen and examined with PGY-1 Dr. Antunez. Agree with history, exam findings, assessment and plan of care as outlined. In brief, Mr. Grajeda is an 80 year old male with no past medical history admitted with new onset metastatic cancer with unknown primary. Today, he has some abdominal pain in the lower abdomen as well as left sided rib pain. No nausea or vomiting. Vital signs and nursing notes reviewed. Thin, frail appearing. No cervical or supraclavicular lymphadenopathy. Heart with soft systolic murmur. No rub or gallop. No lower extremity edema. Lungs are clear to auscultation. Tender over the left lateral ribs (?Rib 8 or 9) in the mid-axillary line. Abdomen with + bowel sounds, soft and non-distended. Tender in the LLQ. Lab and imaging reviewed. 1.Metastatic cancer with unknown primary. Mets to the bone, lungs and liver. Clear liquid diet. Plan for EUS with FNA with GI on Wednesday with Dr. Marks. Cancel oncology consulthe can see oncology as an outpatient once a work up for the primary malignancy is complete. Pain control for abdominal and bone pain with morphine. Continue H2 gloria and PPI. Lovenox for DVT prophylaxis. Dispo: pending EUS/FNA. Subjective Was seen sleeping comfortably in bed today. Notes continued lower back, abdominal pain. Also complains of frequent urination. Wants to know when he can go home. Review of Systems Constitutional: as per Subjective / HPI Physical Exam Constitutional: WD/WN, vitals as above Respiratory: Auscultation: + crackles (lower lung whittaker) Cardiovascular: RRR, no murmur, no edema Gastrointestinal (Abdomen): Percussion/Palpation: + abdomen tender, + guarding and abdomen soft; no hepatomegaly and no pulsatile mass Results & Data Results & Data ([facility]) Vital Signs (Past 12 Hours) Vital Signs Temp Pulse Resp BP Pulse Ox 01/25/21 16:03 36.6 C 87 18 159/71 H 94 Resident Activity Tracking Resident Involvement: Resident Care Provided Care Provided: Adult Hospital Medicine (1) Abdominal pain Abdominal location: generalized Qualified Code(s): R10.84 - Generalized abdominal pain
[2021-01-26 06:30] LABS: Hematocrit (blood only) 40.5 % (42-52); Hemoglobin 13.8 g/dL (14.0-18.0); Mean Corpuscular Hemoglobin 31.8 pg (25-34); Mean Corpuscular Hgb Conc 34.1 g/dL (32-36); Mean Corpuscular Volume 93.3 fL (80-100); Mean Platelet Volume 9.3 fL (7.4-10.4); Platelet Count 196 K/uL (130-400); RDW Coefficient of Variation 13.6 % (11.5-14.5); RDW Standard Deviation 46.5 fL (36.4-46.3); Red Blood Count 4.34 M/uL (4.7-6.1); White Blood Count 10.82 K/uL (4.8-10.8)
[2021-01-26 07:01] LABS: BUN Creatinine Ratio 26.7 (10-20); Calcium 8.2 mg/dl (8.5-10.1); Est GFR (African American) 75.1 ml/min; Est GFR (Non-African American) 64.8 ml/min; Potassium 4.2 mmol/L (3.5-5.1)
[2021-01-26 07:07] LABS: Prostate Specific Antigen 3.13 ng/ml (0-4)
[2021-01-26] MEDS: ENOXAPARIN INJ 40 MG/0.4 ML SYR SQ SCH (08:22)
[2021-01-26] MEDS: PANTOprazole 40 MG TAB PO SCH ×2 (08:22→20:23)
[2021-01-26] MEDS: FAMOTIDINE 20 MG in SYRINGE 3 ML IV SCH ×2 (08:25→20:23)
--- NOTE | 2021-01-26 18:06 | Hospitalist Progress Note ---
Date of Service January 26, 2021 Assessment & Plan (1) Abdominal pain: Plan: Abdominal pain, back pain Patient with 1-2 week history of worsening right abdominal and back pain Patient afebrile, with mild leukocytosis, no anemia, Mildly elevated INR to 1.2, improving but still elevated LFTs (AST today 167 from 176, ALT 81 today from 94, alk phos 632 today from 728) PSA normal: 3.13 CXR showed: * Nonspecific patchy bibasilar densities suggestive of atelectasis or pneumonia * Possible 9mm nodule within the periphery the right lower lung zone abutting the minor fissure CT abdomen/pelvis showed: * Necrotic lymphadenopathy within the chest and upper abdomen with multiple pulmonary nodules/masses and multiple hepatic masses consistent with metastatic disease * Proximal duodenal thickening with mild adjacent fat stranding suggestive of peptic ulcer disease vs duodenitis vs duodenal lesion, no perforation identified * Trace right pleural effusion * Mild gallbladder wall edema * No evidence for bowel obstruction Discussed high degree of suspicion for metastatic disease; patient is interested in further workup to determine treatment options before deciding on goals of care Consult GI: * EUS/FNA scheduled for 01/27 w/Dr. Marks * clear liquid diet until Wednesday at midnight---->NPO Heme/onc consult: will evaluate after results of EUS/FNA on Wednesday Pain control with morphine IV 2mg q1h prn Famotidine IV 20mg bid, pantoprazole IV 40mg bid Zofran prn nausea CBC, CMP labs daily Lovenox 40mg q24h Pulmonary nodules Seen on CXR and CT abdomen/pelvis as above Suspect leukocytosis is secondary to duodenal inflammation, malignancy, or demargination 2/2 dry heaves, low suspicion for pneumonia at this time Pulm consult withheld until GI FNA on 01/27 sheds more light on source of primary neoplasm * Heme/onc will evaluate then FEN: clear liquid today, NPO at midnight: full code DVT ppx: lovenox Held home meds: none Isolation: none Consults: gastroenterology (EUS/FNA scheduled for 01/27); heme/onc (will follow up after FNA) PT/OT: ordered Dispo: med/surg (2) Pulmonary nodule: (3) Duodenal disease: (4) Back pain: (5) Weight loss: (6) Concern about cancer without diagnosis: Admission and Anticipated Discharge Date Admission Date: January 24, 2021 Supervising Physician Co-Signing Physician Notes Patient seen and examined independently of PGY-1 Dr. Antunez. Agree with history, exam findings, assessment and plan of care as outlined. In brief, Mr. Grajeda is an 80 year old male with no past medical history admitted with new onset metastatic cancer with unknown primary. Today, he has some abdominal pain in the lower abdomen as well as left sided rib pain. No nausea or vomiting. No chest pain. Overall, feels a bit tired. He is aware of the upcoming procedure with GI tomorrow. Vital signs and nursing notes reviewed. Thin, frail appearing. No cervical or supraclavicular lymphadenopathy. Heart with soft systolic murmur. No rub or gallop. No lower extremity edema. Lungs are clear to auscultation. Abdomen with + bowel sounds, soft and non-distended. Tender in the LLQ. Lab and imaging reviewed. 1. Metastatic cancer with unknown primary. Mets to the bone, lungs and liver. PSA in the normal range. Clear liquid diet. Plan for EUS with FNA with GI on Wednesday with Dr. Marks. Cancel oncology consulthe can see oncology as an outpatient once a work up for the primary malignancy is complete. Pain control for abdominal and bone pain with morphine. Continue H2 gloria and PPI. Lovenox for DVT prophylaxis. Dispo: pending EUS/FNA on Wednesday, NPO at midnight. Subjective Sleeping comfortably in bed. Denies back pain, abdominal pain. Also reports his urination frequency is decreased compared to yesterday. Wants to know if his son can bring him a few things from home. Review of Systems Constitutional: as per Subjective / HPI Physical Exam Constitutional: + thin, + frail appearing, cooperative and comfortable Respiratory: normal respiratory effort, lungs clear to auscultation Cardiovascular: RRR, no murmur, no edema Gastrointestinal (Abdomen): Inspection/Auscultation: abdomen normal to inspection and normal bowel sounds Percussion/Palpation: + abdomen tender, + guarding and abdomen soft; no hepatomegaly and no fluid wave Results & Data Results & Data ([facility]) Vital Signs (Past 12 Hours) Vital Signs Temp Pulse Resp BP Pulse Ox 01/26/21 15:45 36.7 C 77 20 159/74 H 92 01/26/21 07:35 36.8 C 79 16 158/72 H 94 Resident Activity Tracking Resident Involvement: Resident Care Provided Care Provided: Adult Hospital Medicine (1) Abdominal pain Abdominal location: generalized Qualified Code(s): R10.84 - Generalized abdominal pain
[2021-01-27 08:05] LABS: Hematocrit (blood only) 42.2 % (42-52); Hemoglobin 14.4 g/dL (14.0-18.0); Mean Corpuscular Hemoglobin 31.6 pg (25-34); Mean Corpuscular Hgb Conc 34.1 g/dL (32-36); Mean Corpuscular Volume 92.5 fL (80-100); Mean Platelet Volume 9.6 fL (7.4-10.4); Platelet Count 161 K/uL (130-400); RDW Coefficient of Variation 13.6 % (11.5-14.5); RDW Standard Deviation 46.1 fL (36.4-46.3); Red Blood Count 4.56 M/uL (4.7-6.1); White Blood Count 12.35 K/uL (4.8-10.8)
[2021-01-27] MEDS: PANTOprazole 40 MG TAB PO SCH ×2 (08:05→20:04)
[2021-01-27] MEDS: FAMOTIDINE 20 MG in SYRINGE 3 ML IV SCH ×2 (08:05→20:04)
[2021-01-27] MEDS: ENOXAPARIN INJ 40 MG/0.4 ML SYR SQ SCH (08:08)
[2021-01-27 08:39] LABS: BUN Creatinine Ratio 23.1 (10-20); Calcium 8.4 mg/dl (8.5-10.1); Creatinine Clr Calc Pharmacy 44.6 ml/min; Est GFR (African American) 68.8 ml/min; Est GFR (Non-African American) 59.4 ml/min; Potassium 3.9 mmol/L (3.5-5.1)
--- NOTE | 2021-01-27 09:28 | Gastroenterology Progress Note ---
Date of Service January 27, 2021 Assessment & Plan (1) Abnormal LFTs: Plan: 80 year old male w/ elevated LFTs, imaging w/ duodenitis, necrotic lymphadenopathy within the chest and upper abdomen with multiple pulmonary nodules/masses and multiple hepatic masses concerning for metastatic disease NPO EGD w/ EUS today Please see consultation for other recommendations Thank you for allowing us to participate in the care of this patient. Please call with any acute changes, questions or concerns. Please see addendum below with additional recommendation from my supervising physician. Admission and Anticipated Discharge Date Admission Date: January 24, 2021 Supervising Physician Co-Signing Physician Notes I performed a history and physical examination of the patient today, including specifically on physical exam - soft abdomen. I have discussed the patient's management with the advanced practitioner. Please refer to the nurse practitioner's note for the documented findings and plan of care. Subjective NPO for EUS. No acute concerns this AM. Denies pain, nausea. Review of Systems Constitutional: + weight loss; no fever, no chills and no fatigue Eyes: no eye pain and no worsening vision Ear, Nose, Mouth, Throat: no tinnitus, no dizziness, no nasal discharge and no epistaxis Respiratory: no cough, no dyspnea, no dyspnea on exertion and no wheezing Cardiovascular: no chest pain, no orthopnea, no palpitations and no edema Gastrointestinal: as per Subjective / HPI Musculoskeletal: no stiffness and no myalgia Neurologic: no localized weakness, no paralysis, no tremor(s) and no headache(s) Endocrine: no polydipsia and no polyuria Hematologic / Lymphatic: no easy bleeding and no night sweats Physical Exam Constitutional: WD/WN, vitals as above Respiratory: normal respiratory effort, lungs clear to auscultation Cardiovascular: RRR, no murmur, no edema Gastrointestinal (Abdomen): normal bowel sounds, soft, nontender, no hepatosplenomegaly Skin: no rashes, warm and dry Results & Data ([facility]) Vital Signs (Past 12 Hours) Vital Signs Temp Pulse Pulse Resp BP Pulse Ox 01/27/21 07:43 36.8 C 85 18 127/74 92 01/26/21 23:00 37.3 C 84 16 147/74 H 90 Laboratory Results 01/27/21 01/27/21 Range/Units 07:37 07:37 WBC 12.35 H (4.8-10.8) K/uL RBC 4.56 L (4.7-6.1) M/uL Hgb 14.4 (14.0-18.0) g/dL Hct 42.2 (42-52) % MCV 92.5 (80-100) fL MCH 31.6 (25-34) pg MCHC 34.1 (32-36) g/dL RDW Std Deviation 46.1 (36.4-46.3) fL RDW Coeff of Celine 13.6 (11.5-14.5) % Plt Count 161 (130-400) K/uL MPV 9.6 (7.4-10.4) fL Sodium 136 (136-145) mmol/L Potassium 3.9 (3.5-5.1) mmol/L Chloride 105 (98-107) mmol/L Carbon Dioxide 24 (21-32) mmol/L Anion Gap 8.0 (3-11) BUN 27 H (7-18) mg/dl Creatinine 1.15 (0.6-1.4) mg/dl Est Cr Clr Drug Dosing 44.6 ml/min Est GFR ( Amer) 68.8 ml/min Est GFR (Non-Af Amer) 59.4 ml/min BUN/Creatinine Ratio 23.1 H (10-20) Glucose 135 H (70-99) mg/dl Calcium 8.4 L (8.5-10.1) mg/dl
--- NOTE | 2021-01-27 12:04 | Anesthesiology Consultation ---
Date of Service January 27, 2021 Assessment & Plan (1) Encounter for pre-operative examination: Chart Review Chart Review: Acceptable Risk for Surgery History Surgery Operation Date: 01/27/21 09:40 Proposed Procedures p Endoscopic Ultrasonography [facility] - Cassandra Marks MD Height/Weight Height: 5 ft 5.5 in Weight: 68.7 kg Allergies Allergy/AdvReac Type Severity Reaction Status Date / Time Penicillins Allergy Unknown Verified 01/24/21 17:06 Medications Home Medications Medication Instructions Recorded Confirmed Last Taken No Known Home Medications 01/24/21 01/24/21 Unknown Active Medications Generic Name Dose Route Start Last Admin Trade Name Freq PRN Reason Stop Dose Admin Enoxaparin Sodium 40 mg 01/25/21 09:00 01/27/21 08:08 Enoxaparin Inj 40 Mg/0.4 Ml Syr SQ 02/24/21 08:59 40 mg QAM VICKY Administration Famotidine 20 mg/ Syringe 5 mls @ 2.5 mls/min 01/25/21 09:00 01/27/21 08:05 IV 02/24/21 08:59 2.5 mls/min BID VICKY Administration Pantoprazole Sodium 40 mg 01/24/21 21:00 01/27/21 08:05 Pantoprazole 40 Mg Tab PO 02/23/21 20:59 40 mg BID VICKY Administration NPO Date Last Intake of Fluids: 01/26/21 Time Last Intake of Fluids: 20:30 Date Last Intake of Solids: 01/24/21 Time Last Intake of Solids: 23:59 Past Medical History Medical History (Updated 01/27/21 @ 12:04 by Alexx Mccain MD) Abnormal LFTs Acute duodenitis Cancer, metastatic to liver Pulmonary nodule Past Surgical History Surgical History [place] teeth extracted Social History Smoking Status: Never smoker Do You Dip or Chew Tobacco: No Hx Alcohol Use: No Hx Substance Use: No Physical Exam Vital Signs Last Vital Signs Temp 36.8 C 01/27/21 07:43 Pulse 85 01/27/21 07:43 Resp 18 01/27/21 07:43 BP 127/74 01/27/21 07:43 Pulse Ox 92 01/27/21 07:43 Testing Laboratory Results 01/27/21 07:37 01/27/21 07:37 PT 11.9 Seconds (9.0-12.0) 01/24/21 15:43 INR 1.2 (0.9-1.1) H 01/24/21 15:43 APTT 31.0 Seconds (21.0-31.0) 01/24/21 15:43 Urine Color Yellow 01/25/21 07:50 Urine Appearance Clear (Clear) 01/25/21 07:50 Urine pH 5.0 (4.5-7.5) 01/25/21 07:50 Ur Specific [place] 1.024 (1.000-1.030) 01/25/21 07:50 Urine Protein Trace (Negative) H 01/25/21 07:50 Urine Glucose (UA) Negative (Negative) 01/25/21 07:50 Urine Ketones 1+ (Negative) H 01/25/21 07:50 Urine Nitrite Negative (Negative) 01/25/21 07:50 Ur Leukocyte Esterase Negative (Negative) 01/25/21 07:50 Urine WBC (Auto) 1-5 /hpf (0-5) 01/25/21 07:50 Urine RBC (Auto) 0-4 /hpf (0-4) 01/25/21 07:50 U Hyaline Cast (Auto) 1-5 /lpf (0-5) 01/25/21 07:50 U Epithel Cells (Auto) 5-10 /lpf (0-5) H 01/25/21 07:50 Urine Bacteria (Auto) Negative (Negative) 01/25/21 07:50 Electrocardiogram Date: 01/24/21 Findings: + NSR @ (80)
[2021-01-27] MEDS ORDERED: PROPOFOL IV EMULSION 10 MG/ML 20 ML VIAL IV ONE (13:21)
[2021-01-27] MEDS ORDERED: ONDANSETRON INJ 2 MG/ML 2 ML VIAL ONE (13:21)
[2021-01-27] MEDS ORDERED: GLYCOPYRROLATE 0.2 MG/ML VIAL ONE (13:21)
[2021-01-27] MEDS ORDERED: LIDOCAINE 2% 2 ML VIAL/AMP(20MG/ML) INFIL ONE ×2 (13:21→13:22)
[2021-01-27] MEDS ORDERED: ONDANSETRON INJ 2 MG/ML 2 ML VIAL IV PRN (13:44)
[2021-01-27] MEDS ORDERED: ATROPINE SULFATE 0.1 MG/ML 10ML SYR IV PRN (13:44)
--- NOTE | 2021-01-27 14:08 | History & Physical Bridge Note ---
Date of Service January 27, 2021 History & Physical Bridge Note I have examined the patient, reviewed the History & Physical and in the interval since the performance of the History & Physical I have noted the following changes of clinical significance: no changes noted EUS with FNA today Patient was explained in detail regarding risks, benefits, limitations and alternatives of the above endoscopic procedure. Risks of intravenous sedation used for procedure were also explained. Risks include, but not limited to perforation, bleeding, infection, respiratory distress, cardiac arrest and . Patient is also aware about the possibility of missed lesion. Patient's questions were answered. The patient verbalized understanding the information and agreed to undergo the procedure.
[2021-01-27] MEDS ORDERED: CIPROFLOXACIN / D5W 400 MG/200 ML BAG IV ONE (14:57)
--- NOTE | 2021-01-27 15:12 | Operative Report ---
Post Operative Report Pre & Post Diagnosis Operation Date: 01/27/21 09:40 Pre-Op Diagnosis: Metastatic Cancer Post-Op Diagnosis: Metastatic Cancer I identified the patient and participated in the time-out.: Yes Procedure Operation Date: 01/27/21 09:40 Actual Procedures p Endoscopic Ultrasonography Upper, Esophagogastroduodenoscopy(Not Applicable) - Cassandra Marks MD Surgeon Cassandra Marks MD [employer] None Estimated Blood Loss 0 Findings See Below (Multiple metastatic liver lesions, biopsied) Specimens Liver Mets FNA Description of Procedure EUS I attest to the content of the Intraoperative Record and any orders documented therein. Any exceptions are noted below.
--- NOTE | 2021-01-27 15:32 | GI REPORT ---
Patient Name: Kamari Ceron Procedure Date: 01/27/2021 2:38 PM Date of : 1940 Admit Type: Inpatient Age: 80 Gender: Male Attending MD: Cassandra Marks MD Procedure: Upper GI endoscopy Providers: Cassandra Marks MD Referring MD: Edith Trujillo Indications: Abnormal CT of the GI tract Medicines: Propofol per Anesthesia Complications: No immediate complications. Estimated Blood Loss: Estimated blood loss: none. Procedure: Pre-Anesthesia Assessment: - Prior to the procedure, a History and Physical was performed, and patient medications, allergies and sensitivities were reviewed. The patient's tolerance of previous anesthesia was reviewed. - The risks and benefits of the procedure and the sedation options and risks were discussed with the patient. All questions were answered and informed consent was obtained. - Patient identification and proposed procedure were verified prior to the procedure by the physician and the nurse. The procedure was verified in the procedure room. - Pre-procedure physical examination revealed no contraindications to sedation. After obtaining informed consent, the endoscope was passed under direct vision. Throughout the procedure, the patient's blood pressure, pulse, and oxygen saturations were monitored continuously. The Scope was introduced through the mouth, and advanced to the second part of duodenum. The upper GI endoscopy was accomplished without difficulty. The patient tolerated the procedure well. Findings: The examined esophagus was normal. The entire examined stomach was normal. One non-bleeding superficial duodenal ulcer with no stigmata of bleeding was found in the duodenal bulb. The lesion was 12 mm in largest dimension. Biopsies were taken with a cold forceps for histology. Verification of patient identification for the specimen was done by the nurse using the patient's name and date. The second portion of the duodenum was normal. Impression: - Normal esophagus. - Normal stomach. - Non-bleeding superficial duodenal ulcer with no stigmata of bleeding. Biopsied. - Normal second portion of the duodenum. Recommendation: - Await pathology results. - Use a proton pump inhibitor PO BID for 2 months then once daily. Cassandra Marks MD 01/27/2021 3:31:45 PM This report has been signed electronically. Note Initiated On: 01/27/2021 2:38 PM Number of Addenda: 0 I attest to the content of the Intraoperative Record and orders documented therein, exceptions below {[id number]}
--- NOTE | 2021-01-27 15:35 | Anesthesiology Progress Note ---
Date of Service January 27, 2021 Anesthesia Post Procedure Vital Signs Vital Signs: Temp Pulse Pulse Pulse Resp BP Pulse Ox 01/27/21 15:17 36.5 C 93 H 20 141/73 H 96 01/27/21 14:45 01/27/21 13:29 36.7 C 89 18 143/75 H 94 01/27/21 07:43 36.8 C 85 18 127/74 92 01/26/21 23:00 37.3 C 84 16 147/74 H 90 01/26/21 15:45 36.7 C 77 20 159/74 H 92 Pulse Ox Pulse Ox Pulse Ox 01/27/21 15:17 01/27/21 14:45 95 94 86 L 01/27/21 13:29 01/27/21 07:43 01/26/21 23:00 01/26/21 15:45 Pain Intensity Bilateral Abdomen: Pain Intensity: 0 Transfer of Care Handoff Completed per policy Notes Mental Status: alert / awake / arousable Patient Amnestic to Procedure: Yes Nausea / Vomiting: adequately controlled Pain: adequately controlled Airway Patency, RR, SpO2: stable & adequate BP & HR: stable & adequate Hydration State: stable & adequate Anesthetic Complications: no major complications apparent
--- NOTE | 2021-01-27 16:15 | GI REPORT ---
Patient Name: Kamari Ceron Procedure Date: 01/27/2021 2:46 PM Date of : 1940 Admit Type: Inpatient Age: 80 Gender: Male Attending MD: Cassandra Marks MD Procedure: Upper EUS Providers: Cassandra Marks MD Referring MD: Edith Trujillo Indications: Lymphadenopathy on CT scan, Suspected mass in liver on CT scan Medicines: Propofol per Anesthesia Complications: No immediate complications. Estimated Blood Loss: Estimated blood loss: none. Procedure: Pre-Anesthesia Assessment: - Prior to the procedure, a History and Physical was performed, and patient medications, allergies and sensitivities were reviewed. The patient's tolerance of previous anesthesia was reviewed. - The risks and benefits of the procedure and the sedation options and risks were discussed with the patient. All questions were answered and informed consent was obtained. - Patient identification and proposed procedure were verified prior to the procedure by the physician and the nurse. The procedure was verified in the procedure room. - Pre-procedure physical examination revealed no contraindications to sedation. After obtaining informed consent, the endoscope was passed under direct vision. Throughout the procedure, the patient's blood pressure, pulse, and oxygen saturations were monitored continuously. The scope was introduced through the mouth, and advanced to the second part of duodenum. The upper EUS was accomplished without difficulty. The patient tolerated the procedure well. Findings: ENDOSONOGRAPHIC FINDING: : There was no sign of significant endosonographic abnormality in the ampulla. No masses were identified. There was no sign of significant endosonographic abnormality in the common bile duct. The maximum diameter of the duct was 3 mm. Possible external compression by a nearby hilar lymph node. Moderate hyperechoic material consistent with sludge was visualized endosonographically in the gallbladder. There was no sign of significant endosonographic abnormality in the entire pancreas. The pancreatic duct measured up to 2 mm in diameter. Multiple round lesions were identified endosonographically in the left lobe of the liver and in the right lobe of the liver. The endosonographic appearance was suggestive of metastases. The lesions were hypoechoic. The largest lesion measured 22 mm in maximal cross-sectional diameter. The endosonographic borders were well-defined. Fine needle biopsy was performed. Color Doppler imaging was utilized prior to needle puncture to confirm a lack of significant vascular structures within the needle path. Three passes were made with the 25 gauge Cook EchoTip biopsy needle using a transduodenal approach. A visible core of tissue was obtained. The cellularity of the specimen was adequate. Final cytology results are pending. Verification of patient identification for the specimen was done by the physician and nurse using the patient's name and date. Many malignant-appearing lymph nodes were visualized in the subcarinal mediastinum (level 7) measuring 50 mm, gastrohepatic ligament (level 18), perigastric region and marcelino hepatis region. The nodes were heterogenous and had well defined margins. There was no sign of significant endosonographic abnormality involving the celiac trunk. Impression: - There was no sign of significant pathology in the ampulla. - There was no sign of significant pathology in the common bile duct. Possible external compression by a hilar lymph node. - Hyperechoic material consistent with sludge was visualized endosonographically in the gallbladder. - There was no sign of significant pathology in the entire pancreas. - Multiple metastatic lesions were found in the left and right lobe of the liver. Fine needle biopsy performed. - Many malignant-appearing lymph nodes were visualized in the subcarinal mediastinum (level 7), gastrohepatic ligament (level 18), perigastric region and marcelino hepatis region. - The celiac trunk was endosonographically normal. Recommendation: - [facility] care. - Await cytology results. - Perform MRCP. Cassandra Marks MD 01/27/2021 4:14:57 PM This report has been signed electronically. Note Initiated On: 01/27/2021 2:46 PM Number of Addenda: 0 I attest to the content of the Intraoperative Record and orders documented therein, exceptions below {[id number]}
--- NOTE | 2021-01-27 16:35 | Discharge Summary ---
Date of Service January 27, 2021 Admission HPI Per Admitting Provider 80yo male without significant PMH presents with a fpy-pp-rwr-week history of progressively worsening right-sided abdominal and back pain. Pain is worsened with walking and improved with laying down. Aleve initially helped his pain but made him nauseous and so he stopped taking it. Hasn't vomited. No difficulty with urination or bowel movements, hasn't noticed bloody or dark tarry BMs. Patient does endorse a couple weeks of fatigue and a 10lb weight loss over the past week or so. Patient has had a mild intermittent cough over the past week, occasionally productive of brown sputum but recently has been dry. Endorses mild SOB 2-3 days ago which resolved after one day. Patient denies CP, palpitations, numbness, tingling, or weakness. Patient's mother of a stroke and father in a farming accident. Patient has no known personal or family history of cancer. Patient is a never-smoker, does not drink alcohol, and denies recreational substance use. Admission Exam Per Admitting Provider Constitutional: well-appearing elderly male in no acute distress, laying in bed HEENT: NCAT, no conjunctival injection, no scleral icterus CV: regular rhythm, no murmur appreciated, extremities well-perfused, no LE edema Resp: no increased work of breathing, crackles appreciated in all lung whittaker, right worse than left, posterior whittaker worse than anterior, left lung sounds slightly diminished, faint end-expiratory wheeze heard in right anterior field GI: soft, nondistended, mild tenderness to RUQ and RLQ palpation, no LUQ or LLQ tenderness, BS present MSK: back nontender, no flank tenderness, distal half of right thumb amputated Skin: erythematous rash of left cheek Neuro: AOx4, CN2-12 grossly intact, no focal neurological deficits appreciated Principal Diagnosis Metastatic Cancer Discharge Exam Constitutional + thin, + frail appearing, cooperative and comfortable Neck trachea midline, no thyromegaly Respiratory normal respiratory effort, lungs clear to auscultation Cardiovascular RRR, no murmur, no edema Gastrointestinal (Abdomen) Percussion/Palpation: + abdomen tender (mildly at the RUQ) and + guarding Discharge Data Allergies Allergy/AdvReac Type Severity Reaction Status Date / Time Penicillins Allergy Unknown Verified 01/24/21 17:06 Consultations 01/24/21 17:48 ED Decision to Admit Stat 01/24/21 20:49 Consult Gastroenterology Routine 01/25/21 07:00 Consult Oncology Routine Procedures Performed Operation Date: 01/27/21 09:40 Actual Procedures p Endoscopic Ultrasonography Upper, Esophagogastroduodenoscopy(Not Applicable) - Cassandra Marks MD Ordered Studies 01/24/21 15:37 CT abd pelvis IV con only Stat 01/27/21 14:33 US upper EUS PACS images Routine 01/27/21 16:04 MR MRCP Routine Hospital Course (1) Abdominal pain: Abdominal pain, back pain Patient with 1-2 week history of worsening right abdominal and back pain Patient afebrile, with mild leukocytosis, no anemia, Mildly elevated INR to 1.2, improving but still elevated LFTs (AST today 167 from 176, ALT 81 today from 94, alk phos 632 today from 728) PSA normal: 3.13 CXR showed: * Nonspecific patchy bibasilar densities suggestive of atelectasis or pneumonia * Possible 9mm nodule within the periphery the right lower lung zone abutting the minor fissure CT abdomen/pelvis showed: * Necrotic lymphadenopathy within the chest and upper abdomen with multiple pulmonary nodules/masses and multiple hepatic masses consistent with metastatic disease * Proximal duodenal thickening with mild adjacent fat stranding suggestive of peptic ulcer disease vs duodenitis vs duodenal lesion, no perforation identified * Trace right pleural effusion * Mild gallbladder wall edema * No evidence for bowel obstruction Discussed high degree of suspicion for metastatic disease; patient is interested in further workup to determine treatment options before deciding on goals of care Consult GI: * EUS/FNA performed 01/27 w/Dr. Marks: * Normal esophagus * Normal stomach * Non-bleeding superficial duodenal ulcer with no * stigmata of bleeding. Biopsied * Normal second portion of the duodenum. Pulmonary nodules Seen on CXR and CT abdomen/pelvis as above Suspect leukocytosis is secondary to duodenal inflammation, malignancy, or demargination 2/2 dry heaves, low suspicion for pneumonia at this time Pulm consult withheld until GI FNA on 01/27 sheds more light on source of primary neoplasm * Heme/onc will evaluate then FEN: clear liquid today, NPO at midnight: full code DVT ppx: lovenox Held home meds: none Isolation: none Consults: gastroenterology (EUS/FNA scheduled for 01/27); heme/onc (will follow up after FNA) PT/OT: ordered Dispo: med/surg (2) Pulmonary nodule: (3) Duodenal disease: (4) Back pain: (5) Weight loss: (6) Concern about cancer without diagnosis: Discharge Plan Discharge Items Reason For Visit: ABDOMINAL PAIN, BACK PAIN Condition on Discharge: Good Follow-up/Referrals: Edith Cool PA-C [Primary Care Provider] - Medications and DC Order Prescriptions: No Action No Known Home Medications RF: 0 Admission Data Admit Date/Time: 01/24/21 19:02 Attending Provider: Toñito Maddox Admit Provider: Héctor Tom Primary Care Provider: Edith Cool Other Providers: Kamari Mejia V. ; Juarez Vang ; Vitor Padron ; Joanna Ott ; Natty Milligan ; Hugo Echeverria ; Jen Hopkins
--- NOTE | 2021-01-27 16:40 | Anesthesiology Progress Note ---
Date of Service January 27, 2021 Anesthesia Post Procedure Vital Signs Vital Signs: Temp Pulse Pulse Pulse Resp BP Pulse Ox 01/27/21 16:15 89 20 119/70 94 01/27/21 16:05 89 21 117/75 93 01/27/21 15:55 91 H 22 122/69 94 01/27/21 15:45 91 H 22 121/72 97 01/27/21 15:35 91 H 24 135/72 95 01/27/21 15:25 91 H 18 133/66 97 01/27/21 15:17 36.5 C 93 H 20 141/73 H 96 01/27/21 14:45 01/27/21 13:29 36.7 C 89 18 143/75 H 94 01/27/21 07:43 36.8 C 85 18 127/74 92 01/26/21 23:00 37.3 C 84 16 147/74 H 90 Pulse Ox Pulse Ox Pulse Ox 01/27/21 16:15 01/27/21 16:05 01/27/21 15:55 01/27/21 15:45 01/27/21 15:35 01/27/21 15:25 01/27/21 15:17 01/27/21 14:45 95 94 86 L 01/27/21 13:29 01/27/21 07:43 01/26/21 23:00 Pain Intensity Bilateral Abdomen: Pain Intensity: 0 Transfer of Care Handoff Completed per policy Notes Mental Status: alert / awake / arousable Patient Amnestic to Procedure: Yes Nausea / Vomiting: adequately controlled Pain: adequately controlled Airway Patency, RR, SpO2: stable & adequate BP & HR: stable & adequate Hydration State: stable & adequate Anesthetic Complications: no major complications apparent
--- NOTE | 2021-01-27 16:44 | Hospitalist Progress Note ---
Date of Service January 27, 2021 Assessment & Plan (1) Abdominal pain: Plan: Abdominal pain, back pain Patient presented with 1-2 week history of worsening right abdominal and back pain Afebrile, with mild leukocytosis, no anemia, Mildly elevated INR to 1.2, improving but still elevated LFTs * AST yesterday 167 from 176 * ALT 81 yesterday from 94 * Alk phos 632 yesterday from 728 PSA normal: 3.13 CXR showed: * Nonspecific patchy bibasilar densities suggestive of atelectasis or pneumonia * Possible 9mm nodule within the periphery the right lower lung zone abutting the minor fissure CT abdomen/pelvis showed: * Necrotic lymphadenopathy within the chest and upper abdomen with multiple pulmonary nodules/masses and multiple hepatic masses consistent with metastatic disease * Proximal duodenal thickening with mild adjacent fat stranding suggestive of peptic ulcer disease vs duodenitis vs duodenal lesion, no perforation identified * Trace right pleural effusion * Mild gallbladder wall edema * No evidence for bowel obstruction Discussed high degree of suspicion for metastatic disease; patient is interested in further workup to determine treatment options before deciding on goals of care Consult GI: * EUS/FNA originally scheduled for 01/27 w/Dr. Marks: * EGD performed instead: * Normal esophagus * Normal stomach * Non-bleeding superficial duodenal ulcer with no stigmata of bleeding. Biopsied * Normal second portion of the duodenum. Duodenal ulcer specimen sent to path; results pending. Plan to complete MRCP, likely tomorrow Pulmonary nodules Seen on CXR and CT abdomen/pelvis as above Suspect leukocytosis is secondary to duodenal inflammation, malignancy, or demargination 2/2 dry heaves, low suspicion for pneumonia at this time FEN: clear liquids overnight. NPO 4 hrs from MRCP (time unknown as of yet) DVT ppx: lovenox Held home meds: none Isolation: none Consults: gastroenterology (EGD done 01/27; MRCP ordered; likely tomorrow) PT/OT: ordered Dispo: med/surg (2) Pulmonary nodule: (3) Duodenal disease: (4) Back pain: (5) Weight loss: (6) Concern about cancer without diagnosis: Admission and Anticipated Discharge Date Admission Date: January 24, 2021 Supervising Physician Co-Signing Physician Notes I personally examined the patient and verified all torres points of history and exam, discussed case, and agree with decision making with Dr Antunez. Feeling okayno significant pain. Still somewhat groggy post biopsy. Discussed with GIMRCP to be done prior to discharge. Vitals noted, in general he is awake but groggy, no distress. HEENT normocephalic atraumatic mucous membranes moist. Breathing unlabored no accessory muscle use good effort. Skin shows no rashes no pallor or icterus. Neuro without focal deficits. Metastatic cancer, unknown primaryEUS/FNA done earlier today, MRCP pending. Pain is well controlled. If he is able to eat and drink okay, after MRCP, likely home with outpatient oncology follow-up. Otherwise as above. Review of Systems Constitutional: as per Subjective / HPI Physical Exam Constitutional: WD/WN, vitals as above Respiratory: Auscultation: + crackles (lower lung whittaker) Gastrointestinal (Abdomen): Inspection/Auscultation: abdomen normal to inspection and normal bowel sounds Percussion/Palpation: abdomen soft; no hepatomegaly, no pulsatile mass and no ascites Results & Data Results & Data ([facility]) Vital Signs (Past 12 Hours) Vital Signs Temp Pulse Pulse Resp BP Pulse Ox Pulse Ox 01/27/21 16:15 89 20 119/70 94 01/27/21 16:05 89 21 117/75 93 01/27/21 15:55 91 H 22 122/69 94 01/27/21 15:45 91 H 22 121/72 97 01/27/21 15:35 91 H 24 135/72 95 01/27/21 15:25 91 H 18 133/66 97 01/27/21 15:17 36.5 C 93 H 20 141/73 H 96 01/27/21 14:45 95 01/27/21 13:29 36.7 C 89 18 143/75 H 94 01/27/21 07:43 36.8 C 85 18 127/74 92 Pulse Ox Pulse Ox 01/27/21 16:15 01/27/21 16:05 01/27/21 15:55 01/27/21 15:45 01/27/21 15:35 01/27/21 15:25 01/27/21 15:17 01/27/21 14:45 94 86 L 01/27/21 13:29 01/27/21 07:43 Resident Activity Tracking Resident Involvement: Resident Care Provided Care Provided: Adult Hospital Medicine (1) Abdominal pain Abdominal location: generalized Qualified Code(s): R10.84 - Generalized abdominal pain
--- NOTE | 2021-01-27 18:47 | Billing Data ---
Date of Service January 27, 2021 Coding Level of Care Code 61131 Subseq Hosp Care Lvl 2
[2021-01-28] MEDS: FAMOTIDINE 20 MG in SYRINGE 3 ML IV SCH ×2 (08:41→20:01)
[2021-01-28] MEDS: PANTOprazole 40 MG TAB PO SCH ×2 (08:42→20:02)
[2021-01-28] MEDS: ENOXAPARIN INJ 40 MG/0.4 ML SYR SQ SCH (08:42)
--- NOTE | 2021-01-28 08:48 | Gastroenterology Progress Note ---
Date of Service January 28, 2021 Assessment & Plan (1) Abnormal LFTs: Plan: 80 year old male with w/ elevated LFTs, imaging w/ duodenitis, necrotic lymphadenopathy within the chest and upper abdomen with multiple pulmonary nodules/masses and multiple hepatic masses. EUS w/ suspected malignant liver lesion and lymph nodes, MRCP pending Await MRCP Await cytology results Can advance diet as tolerated Admission and Anticipated Discharge Date Admission Date: January 24, 2021 Supervising Physician Co-Signing Physician Notes I performed a history and physical examination of the patient today, including specifically on physical exam - soft abdomen. I have discussed the patient's management with the advanced practitioner. Please refer to the nurse practitioner's note for the documented findings and plan of care. Follow up FNA result Recall GI if needed. Subjective Pt was seen and evaluated, chart reviewed. No concerns this AM. No abd pain, nausea, vomiting. Tolerated clears last night. MRCP 2020 pending EUS 2020: - There was no sign of significant pathology in the ampulla. - There was no sign of significant pathology in the common bile duct. Possible external compression by a hilar lymph node. - Hyperechoic material consistent with sludge was visualized endosonographically in the gallbladder. - There was no sign of significant pathology in the entire pancreas. - Multiple metastatic lesions were found in the left and right lobe of the liver. Fine needle biopsy performed. - Many malignant-appearing lymph nodes were visualized in the subcarinal mediastinum (level 7), gastrohepatic ligament (level 18), perigastric region and marcelino hepatis region. Review of Systems Review of Systems: All systems reviewed & are unremarkable except as noted in HPI & below Physical Exam Constitutional: WD/WN, vitals as above Respiratory: normal respiratory effort, lungs clear to auscultation Cardiovascular: Rate/Rhythm: regular rate and regular rhythm Gastrointestinal (Abdomen): normal bowel sounds, soft, nontender, no hepatosplenomegaly Skin: no rashes, warm and dry Results & Data ([facility]) Vital Signs (Past 12 Hours) Vital Signs Temp Pulse Pulse Resp BP Pulse Ox 01/28/21 06:56 36.8 C 91 H 18 109/68 91 01/28/21 03:12 36.7 C 84 17 127/72 94 01/27/21 21:42 36.6 C 92 H 18 137/73 94
--- NOTE | 2021-01-28 08:58 | Consultation Report ---
ONCOLOGY CONSULTATION DATE OF SERVICE: 01/28/2021. REASON FOR CONSULTATION: Metastatic disease, primary unknown. HISTORY OF: It was my pleasure to visit with Mr. Grajeda at bedside this morning. The hospitalist janki arriola requested a formal oncologic consultation for what appears to be metastatic disease of unknown p rimary. The patient was admitted to [facility] after complaining of right sided abdominal pain wh ich has been persistent over the past 3 to 4 weeks. He describes the pain as dull and persistent. H e also reports a decrease in his appetite and modest weight loss. Upon presentation to the Emergency Room, CT scan of the abdomen and pelvis had revealed necrotic lymphadenopathy within the chest, uppe r abdomen with multiple pulmonary nodules and multiple hepatic masses consistent with metastatic dise ase. Proximal duodenal thickening was also seen along with mild adjacent fat stranding suggestive of peptic ulcer disease versus duodenitis versus a duodenal lesion. GI has appropriately been consulted , underwent endoscopic examination with biopsies of both the duodenum and the liver. These findings have not yet been resulted and thus, I do not have specific recommendations for Mr. Grajeda. That said , I was happy to introduce myself this morning with plans to see him in the office within a week post -discharge. Mr. Grajeda has been advised the radiographic findings are certainly suspicious for metast atic disease. PAST MEDICAL HISTORY: Essentially negative. PAST SURGICAL HISTORY: Status post wisdom teeth extraction. MEDICATIONS: None. ALLERGIES: PENICILLIN. SOCIAL HISTORY: The patient is a . He is a nonsmoker, nondrinker, nonillicit drug user. FAMILY HISTORY: Noncontributory. REVIEW OF SYSTEMS: CONSTITUTIONAL: As per HPI, most notably for abdominal pain, anorexia and weight loss. No fevers, c hills or sweats. SKIN: No rashes or lesions. No history of dermatoses. HEENT: Negative for headaches, lightheadedness or dizziness. No acute visual or hearing deficits. No sinus symptoms, sore throat or dysphagia. LYMPH: No history of lymphoproliferative disease. CARDIAC: No history of coronary artery disease, no angina or palpitations. PULMONARY: No history of COPD. He is not short of breath, dyspneic or orthopneic. No cough or hemo ptysis. GASTROINTESTINAL: As per HPI. GENITOURINARY: No hematuria, dysuria, urinary incontinence. No history of prostate disease. MUSCULOSKELETAL: No history of arthritis. No focal muscle weakness or skeletal pain reported. ENDOCRINE: Negative for diabetes or thyroid disease. NEUROLOGIC: Negative for seizure, stroke or migraine headache. HEMATOLOGIC: Positive for leukocytosis. PHYSICAL EXAMINATION: GENERAL: A very pleasant 80-year-old. Awake, alert and appropriate, in no acute distress. VITAL SIGNS: Temperature 36.7, pulse 84, respiratory rate 17, blood pressure 127/72. SKIN: Warm, dry, noncyanotic without petechia, rash or ecchymosis. Turgor is fair. HEENT: Atraumatic, normocephalic. Eyes: PERRLA. EOMI. Sclerae are nonicteric. No conjunctival in jection. Nares are patent without rhinorrhea or discharge. Throat is clear. Tongue is midline. Mu cous membranes are moist. NECK: Supple without JVD or thyromegaly. LYMPH: No cervical, supraclavicular, axillary or inguinal palpable nodes. HEART: Regular rate and rhythm. No clicks, rubs, murmurs or gallops. LUNGS: Clear to auscultation bilaterally. ABDOMEN: Soft, nontender, nondistended. No rigidity or guarding. No palpable hepatosplenomegaly. MUSCULOSKELETAL: Strength and pulses are equal in all 4 quadrants. No clubbing, cyanosis or edema. NEUROLOGIC: He is awake, alert and oriented x3. Cranial nerves are grossly intact. LABORATORY DATA: WBC count 12,350, hemoglobin 14.4, platelet count 161,000. Sodium 136, potassium 3 .9, chloride 105, carbon dioxide 24, creatinine 1.15, BUN 27. RADIOGRAPHIC DATA: As described in the HPI. Necrotic lymphadenopathy within the chest, upper abdomen with multiple pulmonary nodules and masses and hepatic lesions as well. Proximal duodenal thickenin g was also noted. IMPRESSION: 1. Abdominal pain. 2. Metastatic carcinoma, primary unknown, probable gastrointestinal origin. 3. Pulmonary nodules. 4. Anorexia. PLAN: It was my pleasure to visit with Mr. Grajeda at bedside. This gentleman, who is otherwise healt hy for his advanced age, presented to [facility] after a couple of weeks of subacut e onset abdominal pain. CT scan of the abdomen and pelvis is concerning for metastatic disease, prob able GI primary. Biopsies of the duodenum and liver are pending at the time of dictation, and thus c annot provide specific recommendations at the present time. However, I did allude to the fact that u brianunately he suffers from an incurable disease and most likely will require salvage chemotherapy s hould he desire. Mr. Grajeda understands, he will follow up in the office to discuss specifics moving forward. He has no other outstanding medical issues and trust he will be discharged in the next 24 t o 48 hours. I would like to convene with Mr. Grajeda in 1-2 weeks to discuss further. Thank you very much for allowing me to participate in his care. If there are any questions or concer ns, please feel free to contact me at any time. Job ID: [id number]
--- NOTE | 2021-01-28 09:41 | Magnetic Resonance Report ---
MRCP CLINICAL HISTORY: Abdominal pain. rule our biliary compression. TECHNIQUE: Utilizing a 1.5 Vonda magnet and dedicated coil, multiplanar, multiecho imaging of the [facility] er abdomen was performed utilizing heavily T2 weighted pulsing sequences without IV contrast. COMPARISON STUDY: CT of the abdomen and pelvis January 24, 2021. FINDINGS: Visualized portions of the lower chest demonstrate a small right pleural effusion. Patholog ic mediastinal and right hilar lymphadenopathy as well as numerous pulmonary metastases are noted. Th elsie were shown on CT of January 24, 2021. Innumerable hepatic masses measure up to 4.5 cm. This exa m is compromised by motion artifact. However, there is no intra or extrahepatic biliary ductal dilata tion. Distal common bile measures 4 mm in caliber. No common bile duct calculi are identified. No gal lstones are identified on this examination. There is no pancreatic ductal dilatation. Left renal cyst is noted. There is no hydronephrosis. Unenhanced images of the spleen and adrenal glands are unremar kable. Caliber of visualized small and large bowel are normal. There is trace right retroperitoneal s tranding. Multiple enlarged upper abdominal lymph nodes are noted including a 2.4 cm marcelino hepatis no de. Multiple foci of marrow replacement are identified, particularly within the thoracic and lumbar s pines. IMPRESSION: 1. No biliary ductal dilatation. No common bile duct calculi identified. Exam compromised by motion a rtifact. 2. Findings consistent with extensive metastatic disease, including hepatic, skeletal, pulmonary and lauren metastases, as described above. ACT 112: Negative or not required by law. Electronically signed by: Jesus Monteiro M.D. 01/28/2021 9:40 AM
--- NOTE | 2021-01-28 19:16 | Billing Data ---
Date of Service January 28, 2021 Coding Level of Care Code 10283 Subseq Hosp Care Lvl 2
--- NOTE | 2021-01-28 20:23 | Hospitalist Progress Note ---
Date of Service January 28, 2021 Assessment & Plan (1) Abdominal pain: Plan: Abdominal pain, back pain Patient presented with 1-2 week history of worsening right abdominal and back pain Afebrile, with mild leukocytosis, no anemia, Mildly elevated INR to 1.2, improving but still elevated LFTs * AST yesterday 167 from 176 * ALT 81 yesterday from 94 * Alk phos 632 yesterday from 728 PSA normal: 3.13 CXR showed: * Nonspecific patchy bibasilar densities suggestive of atelectasis or pneumonia * Possible 9mm nodule within the periphery the right lower lung zone abutting the minor fissure CT abdomen/pelvis showed: * Necrotic lymphadenopathy within the chest and upper abdomen with multiple pulmonary nodules/masses and multiple hepatic masses consistent with metastatic disease * Proximal duodenal thickening with mild adjacent fat stranding suggestive of peptic ulcer disease vs duodenitis vs duodenal lesion, no perforation identified * Trace right pleural effusion * Mild gallbladder wall edema * No evidence for bowel obstruction Discussed high degree of suspicion for metastatic disease; patient is interested in further workup to determine treatment options before deciding on goals of care Consult GI: * EUS/FNA originally scheduled for 01/27 w/Dr. Marks: * EGD performed instead: * Normal esophagus * Normal stomach * Non-bleeding superficial duodenal ulcer with no stigmata of bleeding. Biopsied * Normal second portion of the duodenum. Duodenal ulcer specimen sent to path; results pending. MRCP: * Findings consistent with extensive metastatic disease, including hepatic, skeletal, pulmonary and lauren metastases * small right pleural effusion * pathologic mediastinal and right hilar lymphadenopathy as well as numerous pulmonary metastases are noted, as shown on CT of January 24, 2021 * Innumerable hepatic masses measure up to 4.5 cm * no intra or extrahepatic biliary ductal dilatation * No common bile duct calculi are identified * no pancreatic ductal dilatation * trace right retroperitoneal stranding * multiple enlarged upper abdominal lymph nodes are noted including a 2.4 cm marcelino hepatis node * multiple foci of marrow replacement are identified, particularly within the thoracic and lumbar spines Seen by Dr. Mejia. Will f/u outpatient. Dispo pending evaluation for home O2 order. Likely tomorrow. Pulmonary nodules Seen on CXR and CT abdomen/pelvis as above Suspect leukocytosis is secondary to duodenal inflammation, malignancy, or demargination 2/2 dry heaves, low suspicion for pneumonia at this time FEN: Regular diet DVT ppx: lovenox Held home meds: none Isolation: none Consults: gastroenterology, oncology PT/OT: ordered Dispo: med/surg (2) Pulmonary nodule: (3) Duodenal disease: (4) Back pain: (5) Weight loss: (6) Concern about cancer without diagnosis: Admission and Anticipated Discharge Date Admission Date: January 24, 2021 Supervising Physician Co-Signing Physician Notes I personally examined the patient and verified all torres points of history and exam, discussed case, and agree with decision making with Dr Antunez. Feeling okay. would like to go home. O2 numbers noted. Vitals noted, in general he is awake but groggy, no distress. HEENT normocephalic atraumatic mucous membranes moist. Breathing unlabored no accessory muscle use good effort. Skin shows no rashes no pallor or icterus. Neuro without focal deficits. Metastatic cancer, unknown primaryEUS/FNA done, eating and drinking okay, overall stable for home, but does appear to require oxygenlikely from lung metastatic disease. Otherwise as above. Subjective Resting in bed this morning. Has a nasal canula. Denies any abdominal or back pain. Review of Systems Constitutional: as per Subjective / HPI Physical Exam Constitutional: WD/WN, vitals as above Respiratory: Auscultation: + crackles (right lower lung field) Gastrointestinal (Abdomen): Inspection/Auscultation: normal bowel sounds Percussion/Palpation: + abdomen tender (mildly) and abdomen soft Results & Data Results & Data ([facility]) Vital Signs (Past 12 Hours) Vital Signs Temp Pulse Resp BP Pulse Ox 01/28/21 15:37 36.5 C 92 H 16 126/74 92 Resident Activity Tracking Resident Involvement: Resident Care Provided Care Provided: Adult [facility] Medicine (1) Abdominal pain Abdominal location: generalized Qualified Code(s): R10.84 - Generalized abdominal pain
[2021-01-29 06:22] LABS: Hematocrit (blood only) 39.2 % (42-52); Hemoglobin 13.5 g/dL (14.0-18.0); Mean Corpuscular Hemoglobin 32.1 pg (25-34); Mean Corpuscular Hgb Conc 34.4 g/dL (32-36); Mean Corpuscular Volume 93.3 fL (80-100); Mean Platelet Volume 9.5 fL (7.4-10.4); Platelet Count 129 K/uL (130-400); RDW Coefficient of Variation 13.6 % (11.5-14.5); RDW Standard Deviation 46.2 fL (36.4-46.3); White Blood Count 13.66 K/uL (4.8-10.8)
[2021-01-29] MEDS: PANTOprazole 40 MG TAB PO SCH ×2 (08:24→21:21)
[2021-01-29] MEDS: ENOXAPARIN INJ 40 MG/0.4 ML SYR SQ SCH (08:25)
[2021-01-29] MEDS: FAMOTIDINE 20 MG in SYRINGE 3 ML IV SCH ×2 (08:30→21:21)
--- NOTE | 2021-01-29 09:50 | Discharge Summary ---
Date of Service January 29, 2021 Admission Exam Per Admitting Provider Constitutional: well-appearing elderly male in no acute distress, laying in bed HEENT: NCAT, no conjunctival injection, no scleral icterus CV: regular rhythm, no murmur appreciated, extremities well-perfused, no LE edema Resp: no increased work of breathing, crackles appreciated in all lung whittaker, right worse than left, posterior whittaker worse than anterior, left lung sounds slightly diminished, faint end-expiratory wheeze heard in right anterior field GI: soft, nondistended, mild tenderness to RUQ and RLQ palpation, no LUQ or LLQ tenderness, BS present MSK: back nontender, no flank tenderness, distal half of right thumb amputated Skin: erythematous rash of left cheek Neuro: AOx4, CN2-12 grossly intact, no focal neurological deficits appreciated Principal Diagnosis Metastatic cancer of unknown origin Discharge Exam Constitutional WD/WN, vitals as above Respiratory + cough Auscultation: + crackles Cardiovascular RRR, no murmur, no edema Gastrointestinal (Abdomen) Percussion/Palpation: + abdomen tender (mildly, at periumbilical region) Discharge Data Allergies Allergy/AdvReac Type Severity Reaction Status Date / Time Penicillins Allergy Unknown Verified 01/24/21 17:06 Consultations 01/24/21 17:48 ED Decision to Admit Stat 01/24/21 20:49 Consult Gastroenterology Routine 01/25/21 07:00 Consult Oncology Routine Procedures Performed Operation Date: 01/27/21 09:40 Actual Procedures p Endoscopic Ultrasonography Upper, (Not Applicable) - Cassandra Marks MD s Esophagogastroduodenoscopy(Not Applicable) - Cassandra Marks MD Ordered Studies 01/24/21 15:37 CT abd pelvis IV con only Stat 01/27/21 14:33 US upper EUS PACS images Routine 01/27/21 16:04 MR MRCP Routine Hospital Course (1) Abdominal pain: Abdominal pain, back pain Patient presented with 1-2 week history of worsening right abdominal and back pain Afebrile, with mild leukocytosis, no anemia, Mildly elevated INR to 1.2, improving but still elevated LFTs * AST yesterday 167 from 176 * ALT 81 yesterday from 94 * Alk phos 632 yesterday from 728 PSA normal: 3.13 CXR showed: * Nonspecific patchy bibasilar densities suggestive of atelectasis or pneumonia * Possible 9mm nodule within the periphery the right lower lung zone abutting the minor fissure CT abdomen/pelvis showed: * Necrotic lymphadenopathy within the chest and upper abdomen with multiple pulmonary nodules/masses and multiple hepatic masses consistent with metastatic disease * Proximal duodenal thickening with mild adjacent fat stranding suggestive of peptic ulcer disease vs duodenitis vs duodenal lesion, no perforation identified * Trace right pleural effusion * Mild gallbladder wall edema * No evidence for bowel obstruction Discussed high degree of suspicion for metastatic disease; patient is interested in further workup to determine treatment options before deciding on goals of care Consult GI: * EUS/FNA originally scheduled for 01/27 w/Dr. Marks: * EGD performed instead: * Normal esophagus * Normal stomach * Non-bleeding superficial duodenal ulcer with no stigmata of bleeding. Biopsied * Normal second portion of the duodenum. Duodenal ulcer specimen sent to path; results pending. MRCP: * Findings consistent with extensive metastatic disease, including hepatic, skeletal, pulmonary and lauren metastases * small right pleural effusion * pathologic mediastinal and right hilar lymphadenopathy as well as numerous pulmonary metastases are noted, as shown on CT of January 24, 2021 * Innumerable hepatic masses measure up to 4.5 cm * no intra or extrahepatic biliary ductal dilatation * No common bile duct calculi are identified * no pancreatic ductal dilatation * trace right retroperitoneal stranding * multiple enlarged upper abdominal lymph nodes are noted including a 2.4 cm marcelino hepatis node * multiple foci of marrow replacement are identified, particularly within the thoracic and lumbar spines Seen by Dr. Mejia. Will f/u outpatient. Home O2 set up by resp therapy: 2L at rest, 3L with exertion. * script sent home with him. Pulmonary nodules Seen on CXR and CT abdomen/pelvis as above Suspect leukocytosis is secondary to duodenal inflammation, malignancy, or demargination 2/2 dry heaves, low suspicion for pneumonia at this time FEN: Regular diet DVT ppx: lovenox Held home meds: none Isolation: none Consults: gastroenterology, oncology PT/OT: ordered Dispo: med/surg (2) Pulmonary nodule: (3) Duodenal disease: (4) Back pain: (5) Weight loss: (6) Concern about cancer without diagnosis: Total Time Total Time Spent Total Time Spent (In Minutes): 30 Discharge Plan Discharge Items Patient Disposition: Discharge Diagnosis: Metastatic cancer of unknown origin Addtl Attending Provider Instructions: You were admitted to the hospital for abdominal pain. You were treated with pain medication. A discharge summary will be sent to your primary care physician to ensure continuity of care. Please bring this discharge summary with you to your next office appointment so that your provider can review it at that time. Follow-up appointments: You will receive a call to have an appointment set up with Dr. Mejia. If you have not heard from them, or have any other questions for them, their office can be reached at [phone]. Keep all your follow-up appointments as already scheduled. If you cannot make an appointment, notify your provider. CONTACT YOUR PRIMARY CARE PROVIDER if you experience any of the following: Shortness of breath, or weakness that does not improve. Back pain that does not resolve with pain medicine. Difficulty following your treatment plan, or difficulty taking medications CALL 911 OR GO TO THE EMERGENCY DEPARTMENT if you experience any of the following: Sudden, severe abdominal pain or nausea/vomiting Severe chest pain, or chest pain that radiates (moves) to your jaw or arm Sudden, severe shortness of breath or difficulty breathing Thank you for allowing us to participate in your care. Supervising Physician Co-Signing Physician Notes please disregard this documentwas started, but then patient was not discharged. Please refer to progress notes instead.
--- NOTE | 2021-01-29 19:11 | Billing Data ---
Date of Service January 29, 2021 Coding Level of Care Code 08665 Subseq Hosp Care Lvl 2
[2021-01-30] MEDS: ENOXAPARIN INJ 40 MG/0.4 ML SYR SQ SCH (08:45)
[2021-01-30] MEDS: FAMOTIDINE 20 MG in SYRINGE 3 ML IV SCH ×2 (08:45→20:11)
[2021-01-30] MEDS: PANTOprazole 40 MG TAB PO SCH ×2 (08:45→20:11)
--- NOTE | 2021-01-30 12:56 | Hospitalist Progress Note ---
Date of Service January 30, 2021 Assessment & Plan (1) Abdominal pain: Plan: Abdominal pain, back pain Patient presented with 1-2 week history of worsening right abdominal and back pain Afebrile, with mild leukocytosis, no anemia, Mildly elevated INR to 1.2, improving but still elevated LFTs * AST yesterday 167 from 176 * ALT 81 yesterday from 94 * Alk phos 632 yesterday from 728 PSA normal: 3.13 CXR showed: * Nonspecific patchy bibasilar densities suggestive of atelectasis or pneumonia * Possible 9mm nodule within the periphery the right lower lung zone abutting the minor fissure CT abdomen/pelvis showed: * Necrotic lymphadenopathy within the chest and upper abdomen with multiple pulmonary nodules/masses and multiple hepatic masses consistent with metastatic disease * Proximal duodenal thickening with mild adjacent fat stranding suggestive of peptic ulcer disease vs duodenitis vs duodenal lesion, no perforation identified * Trace right pleural effusion * Mild gallbladder wall edema * No evidence for bowel obstruction Discussed high degree of suspicion for metastatic disease; patient is interested in further workup to determine treatment options before deciding on goals of care Consult GI: * EUS/FNA originally scheduled for 01/27 w/Dr. Marks: * EGD performed instead: * Normal esophagus * Normal stomach * Non-bleeding superficial duodenal ulcer with no stigmata of bleeding. Biopsied * Normal second portion of the duodenum. Duodenal ulcer specimen sent to path; results pending. MRCP: * Findings consistent with extensive metastatic disease, including hepatic, skeletal, pulmonary and lauren metastases * small right pleural effusion * pathologic mediastinal and right hilar lymphadenopathy as well as numerous pulmonary metastases are noted, as shown on CT of January 24, 2021 * Innumerable hepatic masses measure up to 4.5 cm * no intra or extrahepatic biliary ductal dilatation * No common bile duct calculi are identified * no pancreatic ductal dilatation * trace right retroperitoneal stranding * multiple enlarged upper abdominal lymph nodes are noted including a 2.4 cm marcelino hepatis node * multiple foci of marrow replacement are identified, particularly within the thoracic and lumbar spines Seen by Dr. Mejia. Will f/u outpatient. Home O2 set up by resp therapy: 2L at rest, 3L with exertion. * script signed Pulmonary nodules Seen on CXR and CT abdomen/pelvis as above Suspect leukocytosis is secondary to duodenal inflammation, malignancy, or dem argination 2/2 dry heaves, low suspicion for pneumonia at this time FEN: Regular diet DVT ppx: lovenox Held home meds: none Isolation: none Consults: gastroenterology, oncology PT/OT: ordered Dispo: med/surg (2) Pulmonary nodule: (3) Duodenal disease: (4) Back pain: (5) Weight loss: (6) Concern about cancer without diagnosis: Admission and Anticipated Discharge Date Admission Date: January 24, 2021 Supervising Physician Co-Signing Physician Notes Weaker and more somnolent today. Will awaken to loud voice, but falls asleep quickly. HPI of questionable veracitydenies chest pain, shortness of breath abdominal pain or other symptoms. Discussed with nursing extensivelyhas been much more somnolent through the day, and barely ate or drank without significant prompting. Did have a fever overnight. Vitals noted, in general he is asleep but awakens to loud voice, but quickly falls asleep again unless constantly stimulated. Does not appear to be in physical distress, no tachypnea. HEENT normocephalic atraumatic mucous membranes slightly dry. Cardio is regular to may be slightly tachycardic no rubs murmurs or gallops. Lungs are clear but somewhat difficult exam due to fatigue and positioning, may be diminished bibasilar. Abdomen is soft nondistended may be some epigastric tenderness no guarding rebound or rigidity. Neuro without focal deficits, is somnolent, but nothing focal. Does not answer orientation questions, but does not seem to be abreast of his current situation or surroundings. SomnolenceCBC, blood cultures, basic metabolic panel, ammonia checkedresults later found white count to be higher, ammonia minimally elevated, creatinine up. Differential for thisseems to really be that the somnolence itself is most likely delirium (doubt this is hepatic encephalopathy, will refrain from treatment but repeat pneumonia level in the a.m.)and then the cause of the delirium itself is potentially infectious (new leukocytosis, feverblood cultures urine culture chest x-ray pending, starting empiric ceftriaxone) potentially metabolic (from dehydration/AKIstarting IV fluids), and probably environmental. No overt toxic cause notednursing had noted that he was reasonably somnolent at times throughout the day even without morphine dosingalthough they did note they gave him some morphine at one point because he did appear very restless and uncomfortable (which helped with this). Metastatic cancer unknown primarybiopsy from EUS pending. Concerning about his overall prognosis given his diffuse metastatic burden and advanced age. WeaknessPT/OT eval and treat ongoing. Subjective Resting in bed this morning. Has a nasal canula. Denies any abdominal or back pain. Review of Systems Constitutional: as per Subjective / HPI Physical Exam Constitutional: + ill appearing and + physical limitations Respiratory: + cough Auscultation: + crackles Cardiovascular: RRR, no murmur, no edema Gastrointestinal (Abdomen): Percussion/Palpation: + abdomen tender (mildly, at periumbilical region) Results & Data Results & Data ([facility]) Vital Signs (Past 12 Hours) Vital Signs Temp Pulse Resp BP Pulse Ox 01/30/21 07:44 36.7 C 98 H 16 114/71 94 01/30/21 07:12 37.2 C Resident Activity Tracking Resident Involvement: Resident Care Provided Care Provided: Adult Hospital Medicine (1) Abdominal pain Abdominal location: generalized Qualified Code(s): R10.84 - Generalized abdominal pain
[2021-01-30] MEDS: MoRPHine SULFATE 2 MG/ML CARP IV PRN (15:27)
[2021-01-30 18:25] LABS: Basophils # (auto) 0.04 K/uL (0-0.2); Basophils % (auto) 0.2 %; Eosinophils # (auto) 0.08 K/uL (0-0.5); Eosinophils % (auto) 0.5 %; Hematocrit (blood only) 41.7 % (42-52); Hemoglobin 14.3 g/dL (14.0-18.0); Immature Granulocytes # (auto) 0.36 K/uL (0.00-0.02); Lymphocytes % (auto) 5.7 %; Mean Corpuscular Hemoglobin 32.2 pg (25-34); Mean Corpuscular Hgb Conc 34.3 g/dL (32-36); Mean Corpuscular Volume 93.9 fL (80-100); Mean Platelet Volume 10.1 fL (7.4-10.4); Monocytes # (auto) 1.54 K/uL (0.11-0.59); Monocytes % (auto) 8.7 %; Neutrophils # (auto) 14.61 K/uL (1.4-6.5); Neutrophils % (auto) 82.9 %; Platelet Count 149 K/uL (130-400); RDW Coefficient of Variation 13.9 % (11.5-14.5); RDW Standard Deviation 47.6 fL (36.4-46.3); Red Blood Count 4.44 M/uL (4.7-6.1); White Blood Count 17.63 K/uL (4.8-10.8)
[2021-01-30] MEDS: LACTATED RINGER'S 1,000 ML IV SCH (18:30)
[2021-01-30 18:40] LABS: BUN Creatinine Ratio 35.1 (10-20); Calcium 8.8 mg/dl (8.5-10.1); Creatinine Clr Calc Pharmacy 33.8 ml/min; Est GFR (African American) 49.1 ml/min; Est GFR (Non-African American) 42.4 ml/min; Potassium 4.6 mmol/L (3.5-5.1)
[2021-01-30] MEDS ORDERED: cefTRIAXone SODIUM 1,000 MG in DEXTROSE 5% 50 ML IV SCH (20:00)
--- NOTE | 2021-01-30 20:02 | Hospitalist Progress Note ---
Date of Service January 29, 2021 Assessment & Plan (1) Abdominal pain: Plan: Abdominal pain, back pain Patient presented with 1-2 week history of worsening right abdominal and back pain Afebrile, with mild leukocytosis, no anemia, Elevated INR, transaminases, alk phos PSA normal: 3. CXR showed: * Nonspecific patchy bibasilar densities suggestive of atelectasis or pneumonia * Possible 9mm nodule within the periphery the right lower lung zone abutting the minor fissure CT abdomen/pelvis showed: * Necrotic lymphadenopathy within the chest and upper abdomen with multiple pulmonary nodules/masses and multiple hepatic masses consistent with metastatic disease * Proximal duodenal thickening with mild adjacent fat stranding suggestive of peptic ulcer disease vs duodenitis vs duodenal lesion, no perforation identified * Trace right pleural effusion * Mild gallbladder wall edema * No evidence for bowel obstruction Discussed high degree of suspicion for metastatic disease; patient is interested in further workup to determine treatment options before deciding on goals of care Consult GI: * EUS/FNA originally scheduled for 01/27 w/Dr. Marks: * EGD performed instead: * Normal esophagus * Normal stomach * Non-bleeding superficial duodenal ulcer with no stigmata of bleeding. Biopsied * Normal second portion of the duodenum. Duodenal ulcer specimen sent to path; results pending. MRCP: * Findings consistent with extensive metastatic disease, including hepatic, skeletal, pulmonary and lauren metastases * small right pleural effusion * pathologic mediastinal and right hilar lymphadenopathy as well as numerous pulmonary metastases are noted, as shown on CT of January 24, 2021 * Innumerable hepatic masses measure up to 4.5 cm * no intra or extrahepatic biliary ductal dilatation * No common bile duct calculi are identified * no pancreatic ductal dilatation * trace right retroperitoneal stranding * multiple enlarged upper abdominal lymph nodes are noted including a 2.4 cm marcelino hepatis node * multiple foci of marrow replacement are identified, particularly within the thoracic and lumbar spines Seen by Dr. Mejia. Will f/u outpatient. Home O2 set up by resp therapy: 2L at rest, 3L with exertion. Pulmonary nodules Seen on CXR and CT abdomen/pelvis as above Suspect leukocytosis is secondary to duodenal inflammation, malignancy, or demargination 2/2 dry heaves, low suspicion for pneumonia at this time FEN: Regular diet DVT ppx: lovenox Held home meds: none Isolation: none Consults: gastroenterology, oncology PT/OT: ordered Dispo: Stable on [facility]oal is now for rehab. Appears overall stable to go once approved/bed available. (2) Pulmonary nodule: (3) Duodenal disease: (4) Back pain: (5) Weight loss: (6) Concern about cancer without diagnosis: Admission and Anticipated Discharge Date Admission Date: January 24, 2021 Subjective No new complaints. Weekresident physicians discussed with family, for now rehab is goal. Review of Systems Review of Systems: All systems reviewed & are unremarkable except as noted in HPI & below Physical Exam Physical Exam: In general he is resting in bed no distress. HEENT normocephalic atraumatic mucous membranes moist. Breathing unlabored no accessory muscle use good effort. Skin shows no rashes no pallor or icterus. Neuro without focal deficits. Results & Data Results & Data ([facility]) Vital Signs (Past 12 Hours) Vital Signs Temp Pulse Resp BP Pulse Ox 01/30/21 15:54 97.9 F 98 H 18 111/71 94 PG Care Time/CCT Total # of Minutes Spent Total Time Spent with Patient: Total time spent is greater than 50% in cooker helper rdination of care (as documented) at patient's floor/unit and/or counseling patient: Coding Level of Care Code None Diagnoses Abdominal pain R10.84 Abdominal location: generalized Pulmonary nodule R91.1 Duodenal disease K31.9 Back pain M54.9 Weight loss R63.4 Concern about cancer without diagnosis Z71.1 (1) Abdominal pain Abdominal location: generalized Qualified Code(s): R10.84 - Generalized abdominal pain
--- NOTE | 2021-01-30 20:03 | Billing Data ---
Date of Service January 30, 2021 Coding Level of Care Code 57573 Subseq Hosp Care Lvl 3
--- NOTE | 2021-01-30 20:55 | XRay Report ---
TWO VIEW CHEST CLINICAL HISTORY: Fever. Leukocytosis. FINDINGS: AP and lateral chest radiographs are compared to study dated 01/24/2021. The AP views are de graded by patient rotation. The cardiomediastinal silhouette is unremarkable. Chronic interstitial th ickening is similar to previous with fibrotic change noted at the lung bases. There is no large pleur al effusion or pneumothorax. Question developing airspace opacities in the right lower lung. The skel etal structures are osteopenic. The bony thorax appears intact. Degenerative change is noted througho ut the thoracic spine. IMPRESSION: 1. Changes of chronic fibrotic lung disease are similar to previous. 2. Question developing airspace opacities in the right lower lung. Correlate clinically for evidence of pneumonia/aspiration pneumonitis. ACT 112: Negative or not required by law. Electronically signed by: Britton Hill M.D. 01/30/2021 8:53 PM
[2021-01-31] MEDS: ALBUT/IPRATROP 3MG/0.5MG NEB 3 ML VIAL NEB SCH ×6 (03:28→22:12)
[2021-01-31 06:45] LABS: Basophils # (auto) 0.05 K/uL (0-0.2); Basophils % (auto) 0.3 %; Eosinophils # (auto) 0.06 K/uL (0-0.5); Eosinophils % (auto) 0.4 %; Hematocrit (blood only) 40.9 % (42-52); Immature Granulocytes # (auto) 0.45 K/uL (0.00-0.02); Immature Granulocytes % (auto) 2.7 %; Lymphocytes # (auto) 0.88 K/uL (1.2-3.4); Lymphocytes % (auto) 5.3 %; Mean Corpuscular Hemoglobin 31.7 pg (25-34); Mean Corpuscular Hgb Conc 34.2 g/dL (32-36); Mean Corpuscular Volume 92.5 fL (80-100); Mean Platelet Volume 10.5 fL (7.4-10.4); Monocytes # (auto) 1.31 K/uL (0.11-0.59); Monocytes % (auto) 7.9 %; Neutrophils # (auto) 13.86 K/uL (1.4-6.5); Neutrophils % (auto) 83.4 %; Platelet Count 138 K/uL (130-400); RDW Coefficient of Variation 13.8 % (11.5-14.5); RDW Standard Deviation 46.9 fL (36.4-46.3); Red Blood Count 4.42 M/uL (4.7-6.1); White Blood Count 16.61 K/uL (4.8-10.8)
[2021-01-31 07:10] LABS: BUN Creatinine Ratio 38.6 (10-20); C Reactive Protein 13.1 mg/dl (0-0.29); Creatinine Clr Calc Pharmacy 33.3 ml/min; Est GFR (African American) 48.3 ml/min; Est GFR (Non-African American) 41.7 ml/min; Potassium 4.4 mmol/L (3.5-5.1)
[2021-01-31] MEDS: LACTATED RINGER'S 1,000 ML IV SCH ×2 (08:42→21:17)
[2021-01-31] MEDS: ENOXAPARIN INJ 40 MG/0.4 ML SYR SQ SCH (08:42)
[2021-01-31] MEDS: PANTOprazole 40 MG TAB PO SCH ×2 (08:42→20:18)
[2021-01-31] MEDS: FAMOTIDINE 20 MG in SYRINGE 3 ML IV SCH ×2 (08:44→20:18)
[2021-01-31 15:55] LABS: BUN Creatinine Ratio 27.4 (10-20); Calcium 9.3 mg/dl (8.5-10.1); Creatinine Clr Calc Pharmacy 19.7 ml/min; Est GFR (African American) 25.7 ml/min; Est GFR (Non-African American) 22.1 ml/min; Potassium 4.9 mmol/L (3.5-5.1)
--- NOTE | 2021-01-31 16:40 | Hospitalist Progress Note ---
Date of Service January 31, 2021 Assessment & Plan (1) Abdominal pain: Plan: Abdominal pain, back pain Patient presented with 1-2 week history of worsening right abdominal and back pain Afebrile, with mild leukocytosis, no anemia, Mildly elevated INR to 1.2, improving but still elevated LFTs * AST yesterday 167 from 176 * ALT 81 yesterday from 94 * Alk phos 632 yesterday from 728 PSA normal: 3.13 CXR showed: * Nonspecific patchy bibasilar densities suggestive of atelectasis or pneumonia * Possible 9mm nodule within the periphery the right lower lung zone abutting the minor fissure CT abdomen/pelvis showed: * Necrotic lymphadenopathy within the chest and upper abdomen with multiple pulmonary nodules/masses and multiple hepatic masses consistent with metastatic disease * Proximal duodenal thickening with mild adjacent fat stranding suggestive of peptic ulcer disease vs duodenitis vs duodenal lesion, no perforation identified * Trace right pleural effusion * Mild gallbladder wall edema * No evidence for bowel obstruction Discussed high degree of suspicion for metastatic disease; patient is interested in further workup to determine treatment options before deciding on goals of care Consult GI: * EUS/FNA originally scheduled for 01/27 w/Dr. Marks: * EGD performed instead: * Normal esophagus * Normal stomach * Non-bleeding superficial duodenal ulcer with no stigmata of bleeding. Biopsied * Normal second portion of the duodenum. Duodenal ulcer specimen sent to path; results pending. MRCP: * Findings consistent with extensive metastatic disease, including hepatic, skeletal, pulmonary and lauren metastases * small right pleural effusion * pathologic mediastinal and right hilar lymphadenopathy as well as numerous pulmonary metastases are noted, as shown on CT of January 24, 2021 * Innumerable hepatic masses measure up to 4.5 cm * no intra or extrahepatic biliary ductal dilatation * No common bile duct calculi are identified * no pancreatic ductal dilatation * trace right retroperitoneal stranding * multiple enlarged upper abdominal lymph nodes are noted including a 2.4 cm marcelino hepatis node * multiple foci of marrow replacement are identified, particularly within the thoracic and lumbar spines Seen by Dr. Mejia. Will f/u outpatient. Home O2 set up by resp therapy: 2L at rest, 3L with exertion. * script signed Dispo to SNF stopped 01/29 by nursing; nursing expressed c/f increasing weakness Leukocytosis 16.6 vs 17.6 yesterday Likely due to pleural effusion pneumonia started on IV ceftriaxone yesterday out of concern for infection: increased lethargy, crackles on resp exam, cxr showing increased infiltrates in lower lung field MRSA swab negative tachycardic this AM, with altered mental status and new onset diffuse abdominal pain; concern for brewing sepsis * CT abd/pelvis with PO contrast ordered (no IV contrast as Cr now 2.6, up from 1.5 this AM) * Plan to add metronidazole for enteric gram-negative coverage if CT suggests enteric infectious process Pulmonary nodules Seen on CXR and CT abdomen/pelvis as above Suspect leukocytosis is secondary to duodenal inflammation, malignancy, or demargination 2/2 dry heaves FEN: Regular diet DVT ppx: lovenox Held home meds: none Isolation: none Consults: gastroenterology, oncology PT/OT: ordered Dispo: med/surg (2) Pulmonary nodule: (3) Duodenal disease: (4) Back pain: (5) Weight loss: (6) Concern about cancer without diagnosis: Admission and Anticipated Discharge Date Admission Date: January 24, 2021 Supervising Physician Co-Signing Physician Notes I personally examined the patient and verified all torres points of history and exam, discussed case, and agree with decision making with Dr Antunez Really no meaningful HPI or review of systems obtainable todaywill briefly awaken to loud voice and constant stimuli, but denies any complaints, but history of very questionable veracity. Vitals noted, in general he sitting up in the chair appears in no distress as far as pain, he is mildly tachypneic, and is somnolent. He will awaken to voice, speaks a little bit sometimes one-word answers sometimes nonsensical and then fall back asleep. Mucous membranes are fairly dry. Cardio is slightly tachycardic with a forceful PMI no rubs murmurs or gallops. Lungs have base right greater than base left rales no rhonchi or wheezes good effort. Abdomen is mildly distended diffuse tender worse in the upper abdomen no guarding rebound or rigidityend of note in discussion with resident physician my exam is markedly different than his was earlier. Sepsis and acute renal failureinitially yesterday as this was involving the first concern was questionably any pneumonia, he was started on empiric ceftriaxone, today continues to look worse and has evolved a somewhat concerning abdominal exam. LFTs checkedbilirubin up, concern that he may have a degree of cholangitisgiven his clinical situation and recent procedures this would certainly fit. Antibiotics broadened to cover gram-negative's and anaerobes, ongoing IV fluids and supportive care, follow creatinine closely. CT abdomen pelvis ordered statis pendingsigned out to night coverage. Blood cultures pending. Family updated by resident physician. Deliriumappears to be from sepsis and VISHNU/dehydrationtreating as above. Reorient as possible. Metastatic cancer unknown primarybiopsy from EUS pending. Concerning about his overall prognosis given his diffuse metastatic burden and advanced age. WeaknessPT/OT eval and treat ongoing. Subjective Seated in chair next to bed this AM. Mostly non verbal throughout the entire encounter. He responds tosome yes/no questions by shaking his head. Otherwise, he is inattentive and has to be reoriented to the conversation. Review of Systems Constitutional: as per Subjective / HPI Physical Exam Constitutional: + ill appearing, + behavioral limitations, + physical limitations, + frail appearing, + disheveled and + lethargic Neck: trachea midline, no thyromegaly Respiratory: + labored breathing Auscultation: + crackles (greater vs yesterday; b/l; loudest at the left lower and middle lung whittaker) Cardiovascular: Rate/Rhythm: regular rhythm and + tachycardic Gastrointestinal (Abdomen): Percussion/Palpation: + abdomen tender (diffusely) Musculoskeletal: Unable to stand on his own without assistance. Skin: + dry skin eyes appear sunken Psychiatric: Apperance: + disheveled Eye Contact: + fair eye contact Speech: + mute Affect: + depressed affect Mood: + depressed mood Thought Process: + incoherent thought process Results & Data Results & Data ([facility]) Vital Signs (Past 12 Hours) Vital Signs Temp Pulse Resp BP BP Pulse Ox 01/31/21 15:56 36.7 C 95 H 18 107/74 92 01/31/21 15:14 115 H 20 94 01/31/21 11:07 116 H 24 93 01/31/21 07:30 100 H 18 91 01/31/21 07:00 37.1 C 100 H 24 117/63 92 Resident Activity Tracking Resident Involvement: Resident Care Provided Care Provided: Adult Hospital Medicine (1) Abdominal pain Abdominal location: generalized Qualified Code(s): R10.84 - Generalized abdominal pain
[2021-01-31 17:34] LABS: Albumin Level 1.9 gm/dl (3.4-5.0); Bilirubin,Total 2.1 mg/dl (0.2-1); Total Protein 6.7 gm/dl (6.4-8.2)
[2021-01-31 17:50] LABS: Bilirubin Direct 1.7 mg/dl (0-0.2)
[2021-01-31] MEDS: metroNIDAZOLE 500 MG/100 ML BAG IV SCH (20:18)
[2021-01-31] MEDS: CEFEPIME 2,000 MG in SYRINGE 0 ML IV SCH (20:28)
--- NOTE | 2021-01-31 20:51 | Billing Data ---
Date of Service January 31, 2021 Coding Level of Care Code 18169 Subseq Hosp Care Lvl 3
--- NOTE | 2021-01-31 21:22 | CT Scan Report ---
CT abd pelvis oral con only CLINICAL INDICATION: [place] ^745 BARIUM ^sepsis . TECHNIQUE: Helical axial images of the abdomen and pelvis were obtained and displayed at 5 and 1 mm i ntervals. Automated dose lowering techniques and/or adjustment according to patient size were utilize d for this exam. This exam was performed without intravenous contrast. COMPARISON: Comparison is made to CT abdomen and pelvis 01/24/2021 FINDINGS: Lower chest: Again noted are multiple pulmonary masses as well as enlarged periesophageal and medias tinal lymph nodes. Liver: Hepatic lesions are not well seen in this noncontrast exam. Gallbladder and biliary tree: No calcified gallstones. Normal caliber wall. No intra- or extrahepatic biliary ductal dilation. Pancreas: Fatty replacement of the pancreas is seen. Spleen: Unremarkable. Adrenals: Unremarkable. Kidneys and ureters: 40 mm cyst in the left interpolar cortex. Bladder: Limited evaluation due to underdistention. Bowel: Diverticulosis is seen without evidence of diverticulitis. The appendix is normal. Lymph nodes Retroperitoneal: Subcentimeter lymph nodes are noted. Mesenteric: Unremarkable. Pelvic: Unremarkable. Reproductive organs: Prostatic calcifications are seen which may represent prior hemorrhage or granul omatous disease. Peritoneum: Trace free fluid is seen in the pelvis. Vessels: Atherosclerotic calcifications are seen. Abdominal wall: Left fat containing and right facet and fluid-containing inguinal hernias. Bones: Degenerative changes in the visualized spine. IMPRESSION: 1. No acute abnormality. 2. Redemonstration of multiple pulmonary masses. Liver masses are not well seen in this noncontrast study. ACT 112: Negative or not required by law. Electronically signed by: Jerrell Roman M.D. 01/31/2021 9:20 PM
--- NOTE | 2021-01-31 21:50 | XRay Report ---
XR chest 1V portable INDICATION: [place] ^increasing O2 requirement. TECHNIQUE: Single frontal radiograph of the chest was obtained. Comparison: Comparison is made to chest 2 views 01/30/2021 FINDINGS: No lines and tubes are seen. The cardiomediastinal silhouette is normal. Lungs are underinflated. Red emonstration of chronic interstitial densities with increasing airspace opacity in the right lower linette ng. No evidence of pleural effusion or pneumothorax. IMPRESSION: Increasing airspace densities in the right lower lung which may represent pneumonia, aspiration, and/ or atelectasis in addition to patient's previously noted underlying lung masses. Left lower lobe atel ectasis is noted. Chronic fibrotic lung disease changes are unchanged. ACT 112: Negative or not required by law. Electronically signed by: Jerrell Roman M.D. 01/31/2021 9:49 PM
[2021-02-01] MEDS: ALBUT/IPRATROP 3MG/0.5MG NEB 3 ML VIAL NEB SCH ×3 (03:06→10:50)
[2021-02-01] MEDS: metroNIDAZOLE 500 MG/100 ML BAG IV SCH ×3 (03:49→19:52)
[2021-02-01 07:17] LABS: Hematocrit (blood only) 38.8 % (42-52); Hemoglobin 13.5 g/dL (14.0-18.0); Mean Corpuscular Hemoglobin 31.9 pg (25-34); Mean Corpuscular Hgb Conc 34.8 g/dL (32-36); Mean Corpuscular Volume 91.7 fL (80-100); Mean Platelet Volume 10.2 fL (7.4-10.4); Platelet Count 116 K/uL (130-400); RDW Coefficient of Variation 13.9 % (11.5-14.5); RDW Standard Deviation 46.8 fL (36.4-46.3); Red Blood Count 4.23 M/uL (4.7-6.1); White Blood Count 21.49 K/uL (4.8-10.8)
[2021-02-01 07:40] LABS: BUN Creatinine Ratio 27.3 (10-20); Calcium 8.8 mg/dl (8.5-10.1); Creatinine Clr Calc Pharmacy 17.1 ml/min; Est GFR (African American) 21.5 ml/min; Est GFR (Non-African American) 18.5 ml/min; Potassium 4.4 mmol/L (3.5-5.1)
[2021-02-01] MEDS: LACTATED RINGER'S 1,000 ML IV SCH (08:18)
[2021-02-01] MEDS: FAMOTIDINE 20 MG in SYRINGE 3 ML IV SCH (08:18)
[2021-02-01] MEDS: CEFEPIME 2,000 MG in SYRINGE 0 ML IV SCH (08:18)
[2021-02-01] MEDS: ENOXAPARIN INJ 40 MG/0.4 ML SYR SQ SCH (08:19)
[2021-02-01] MEDS: PANTOprazole 40 MG TAB PO SCH (08:19)
[2021-02-01 09:16] LABS: Appearance Urine Cloudy (Clear); Blood Urine Trace (Negative); Color Urine Dark Yellow; Epithelial Cell Urine Auto 20-30 /lpf (0-5); Glucose Urine UA Negative (Negative); Ketones Urine Trace (Negative); Leukocyte Esterase Urine Trace (Negative); Nitrite Urine Positive (Negative); Protein Urine Trace (Negative); Urobilinogen Urine Negative (Negative)
[2021-02-01 09:17] LABS: Bilirubin Urine 1+ (Negative)
[2021-02-01 09:53] LABS: RBC Urine Automated 0-4 /hpf (0-4)
[2021-02-01 09:54] LABS: Amorphous Sediment Urine Present (None Prsent); Bacteria Urine Automated 1+ (Negative)
--- NOTE | 2021-02-01 10:38 | Gastroenterology Progress Note ---
Date of Service February 01, 2021 Assessment & Plan (1) Abnormal LFTs: Plan: Patient with elevated liver enzymes and negative imaging within the biliary tree. It is somewhat reassuring as the patient had no extrahepatic or intrahepatic biliary dilation on his prior imaging study from earlier this week. The rise in liver enzymes could be related to diffuse intrahepatic metastasis is known on his imaging studies. Would recommend a repeat MRCP if possible and continued broad-spectrum antibiotic coverage. Given the widespread malignancy it may be reasonable to have a conversation with the patient's family about the long-term goals of care as he is not likely to survive this problem. Admission and Anticipated Discharge Date Admission Date: January 24, 2021 Subjective I was asked to see the patient this morning, he underwent endoscopic ultrasound on Wednesday with Dr. Isela Bailey. Initially no complications were noted. Unfortunately the patient has become quite ill over the last few days with rising white blood cell count and liver enzymes. Prior imaging included both an endoscopic ultrasound which was notable for sludge within the gallbladder but a normal-appearing bile duct and MRCP which showed similar findings. He is also indicated numerous masses within the liver. Physical Exam Constitutional: + ill appearing and + thin Eyes: Mild icterus Neck: trachea midline, no thyromegaly Respiratory: Auscultation: + crackles Cardiovascular: Rate/Rhythm: regular rhythm and + tachycardic Gastrointestinal (Abdomen): Distention of the abdomen noted, diffuse tenderness nonfocal Results & Data ([facility]) Vital Signs (Past 12 Hours) Vital Signs Temp Pulse Resp BP Pulse Ox 02/01/21 07:28 109 H 20 96 02/01/21 07:22 36.8 C 94 H 18 114/72 96 02/01/21 03:08 111 H 28 H 99 Laboratory Results Laboratory Results - last 24 hr 01/31/21 01/31/21 01/31/21 15:22 15:22 22:07 WBC RBC Hgb Hct MCV MCH MCHC RDW Std Deviation RDW Coeff of Celine Plt Count MPV Sodium 136 Potassium 4.9 Chloride 104 Carbon Dioxide 18 L Anion Gap 14.0 H BUN 71 H Creatinine 2.60 H D Est Cr Clr Drug Dosing 19.7 Est GFR ( Amer) 25.7 Est GFR (Non-Af Amer) 22.1 BUN/Creatinine Ratio 27.4 H Glucose 258 H Calcium 9.3 Total Bilirubin 2.1 H Cancelled Direct Bilirubin 1.7 H Cancelled AST 477 H Cancelled ALT 189 H Cancelled Alkaline Phosphatase 1084 H Cancelled Total Protein 6.7 Cancelled Albumin 1.9 L Cancelled CA 19-9 Antigen Pending Urine Color Urine Appearance Urine pH Ur Specific [place] Urine Protein Urine Glucose (UA) Urine Ketones Urine Blood Urine Nitrite Urine Bilirubin Urine Urobilinogen Ur Leukocyte Esterase Urine WBC (Auto) Urine RBC (Auto) U Hyaline Cast (Auto) U Epithel Cells (Auto) Urine Bacteria (Auto) Amorphous Sediment Urine Yeast Ur Random Creatinine Ur Random Sodium 02/01/21 02/01/21 02/01/21 07:02 07:02 07:02 WBC 21.49 H RBC 4.23 L Hgb 13.5 L Hct 38.8 L MCV 91.7 MCH 31.9 MCHC 34.8 RDW Std Deviation 46.8 H RDW Coeff of Celine 13.9 Plt Count 116 L MPV 10.2 Sodium 136 Potassium 4.4 Chloride 102 Carbon Dioxide 21 Anion Gap 13.0 H BUN 82 H Creatinine 3.01 H D Est Cr Clr Drug Dosing 17.1 Est GFR ( Amer) 21.5 Est GFR (Non-Af Amer) 18.5 BUN/Creatinine Ratio 27.3 H Glucose 196 H Calcium 8.8 Total Bilirubin Pending Direct Bilirubin Pending AST Pending ALT Pending Alkaline Phosphatase Pending Total Protein Pending Albumin Pending CA 19-9 Antigen Urine Color Urine Appearance Urine pH Ur Specific [place] Urine Protein Urine Glucose (UA) Urine Ketones Urine Blood Urine Nitrite Urine Bilirubin Urine Urobilinogen Ur Leukocyte Esterase Urine WBC (Auto) Urine RBC (Auto) U Hyaline Cast (Auto) U Epithel Cells (Auto) Urine Bacteria (Auto) Amorphous Sediment Urine Yeast Ur Random Creatinine Ur Random Sodium 02/01/21 02/01/21 08:30 08:30 WBC RBC Hgb Hct MCV MCH MCHC RDW Std Deviation RDW Coeff of Celine Plt Count MPV Sodium Potassium Chloride Carbon Dioxide Anion Gap BUN Creatinine Est Cr Clr Drug Dosing Est GFR ( Amer) Est GFR (Non-Af Amer) BUN/Creatinine Ratio Glucose Calcium Total Bilirubin Direct Bilirubin AST ALT Alkaline Phosphatase Total Protein Albumin CA 19-9 Antigen Urine Color Dark Yellow Urine Appearance Cloudy A Urine pH 5.0 Ur Specific [place] 1.020 Urine Protein Trace H Urine Glucose (UA) Negative Urine Ketones Trace H Urine Blood Trace H Urine Nitrite Positive A Urine Bilirubin 1+ H Urine Urobilinogen Negative Ur Leukocyte Esterase Trace H Urine WBC (Auto) 1-5 Urine RBC (Auto) 0-4 U Hyaline Cast (Auto) 1-5 U Epithel Cells (Auto) 20-30 H Urine Bacteria (Auto) 1+ H Amorphous Sediment Present A Urine Yeast Not Reportable Ur Random Creatinine 142.0 Ur Random Sodium 17 Diagnostic Findings MRCP CLINICAL HISTORY: Abdominal pain. rule our biliary compression. TECHNIQUE: Utilizing a 1.5 Vonda magnet and dedicated coil, multiplanar, multiecho imaging of the upper abdomen was performed utilizing heavily T2 weighted pulsing sequences without IV contrast. COMPARISON STUDY: CT of the abdomen and pelvis January 24, 2021. FINDINGS: Visualized portions of the lower chest demonstrate a small right pleural effusion. Pathologic mediastinal and right hilar lymphadenopathy as well as numerous pulmonary metastases are noted. These were shown on CT of January 24, 2021. Innumerable hepatic masses measure up to 4.5 cm. This exam is compromised by motion artifact. However, there is no intra or extrahepatic biliary ductal dilatation. Distal common bile measures 4 mm in caliber. No common bile duct calculi are identified. No gallstones are identified on this examination. There is no pancreatic ductal dilatation. Left renal cyst is noted. There is no hydronephrosis. Unenhanced images of the spleen and adrenal glands are unremarkable. Caliber of visualized small and large bowel are normal. There is trace right retroperitoneal stranding. Multiple enlarged upper abdominal lymph nodes are noted including a 2.4 cm marcelino hepatis node. Multiple foci of marrow replacement are identified, particularly within the thoracic and lumbar spines. IMPRESSION: 1. No biliary ductal dilatation. No common bile duct calculi identified. Exam compromised by motion artifact. 2. Findings consistent with extensive metastatic disease, including hepatic, skeletal, pulmonary and lauren metastases, as described above.
[2021-02-01 11:04] LABS: Albumin Level 1.9 gm/dl (3.4-5.0); Bilirubin Direct 2.1 mg/dl (0-0.2); Bilirubin,Total 2.5 mg/dl (0.2-1); Total Protein 6.2 gm/dl (6.4-8.2)
--- NOTE | 2021-02-01 11:44 | Nephrology Consultation ---
Date of Consultation February 01, 2021 Assessment & Plan (1) Acute kidney injury: * VISHNU is likely reflective of underlying inflammation and dehydration. Patient has ongoing peritoneal signs with a rising leukocytosis with a L shift. This is concerning for an ongoing intraabdominal process such as inflammation or ischemia * Patient is clinically volume contracted. FeNa is < 1%. Agree with gentle hydration using IV LR * Electrolyte balance is acceptable at this time (2) Metastatic adenocarcinoma of unknown origin: * MRI reveals widely metastatic disease. Oncology notes that salvage chemotherapy could be considered but prognosis appears to be terminal/incurable. * Recommend either transfer to ICU, repeat abdominal imaging and reconsult w/ general surgery or transition to comfort measures. Given the extent of emmanuelle millard's metastatic disease I believe that it is reasonable to consult with Palliative Care, review findings with patient's family and transition to his care to comfort measures. Will discuss w/ primary service. History of Present Illness Reason for Consultation: VISHNU Attending Physician: Toñito Maddox DO History of Present Illness Mr. Grajeda is an 80 year old white male who is seen at the request of Dr. Maddox for evaluation of VISHNU. Medical records in the EMR were reviewed and are summarized as follows: Mr. Grajeda has enjoyed good health and has not maintained medical care with a PCP. He presented to [facility] 01/24/21 for evaluation of R abdominal/flank pain. Admitting Cr was 1.3. Abdominal CT w/ IV contrast revealed a 3.4cm RML lung mass, necrotic mediastinal and R hilar lymphadenopathy. There was also duodenal thickening with fat stranding and liver lesions. 01/27/21 EGD was performed w/ FNA of liver lesions. Histology was c/w poorly differentiated carcinoma (possible adenocarcinoma) of unknown primary. Oncology is considering salvage chemotherapy but notes that prognosis is likely terminal. 01/27/21 abdominal MRI revealed extensive metastatic disease to the liver, lungs and there are multiple areas of bone marrow replacement. Mr. Grajeda was agitated during my evaluation this morning. He could not provide any history or follow commands. It appears uncomfortable. Allergies Allergy/AdvReac Type Severity Reaction Status Date / Time Penicillins Allergy Unknown Verified 01/24/21 17:06 Home Medications Medication Instructions Recorded Confirmed Type No Known Home Medications 01/24/21 01/24/21 History Patient History Medical History (Updated 02/01/21 @ 12:05 by Ji Carmona MD) Abnormal LFTs Acute duodenitis Cancer, metastatic to liver Pulmonary nodule Surgical History [place] teeth extracted Social History Smoking Status: Never smoker Second Hand Exposure: No; Hx Alcohol Use: No Hx Substance Use: No Preferred Language: German Communication Ability: Effective Pl[employer] Fixture [employer] Required: No Beliefs That Will Affect Care: None marital status: / Current Living Situation: Family Current Living Situation Comment: Lives with son Feels Safe at Home: Yes Childhood Exposure to Second-Hand Smoke: Yes Assistive Devices: Glasses, Oxygen - Continuous and Walker Review of Systems Review of Systems: Unobtainable due to reduced consciousness Physical Exam Constitutional: + ill appearing and + in distress (agitated, uncomfortable) Eyes: reactive pupils ENMT: Mouth: + dry oral mucous membranes Neck: trachea midline, no thyromegaly Respiratory: normal respiratory effort, lungs clear to auscultation Cardiovascular: Rate/Rhythm: + tachycardic Gastrointestinal (Abdomen): Inspection/Auscultation: + abdomen distended and + hypoactive bowel sounds Percussion/Palpation: + abdomen tender (+ rebound tenderness RUQ & RLQ) Skin: + turgor decreased Results & Data ([facility]) Vital Signs (Past 12 Hours) Vital Signs Temp Pulse Resp BP Pulse Ox 02/01/21 10:51 117 H 20 94 02/01/21 07:28 109 H 20 96 02/01/21 07:22 36.8 C 94 H 18 114/72 96 02/01/21 03:08 111 H 28 H 99 Laboratory Results Laboratory Tests 01/31/21 01/31/21 02/01/21 15:22 22:07 07:02 WBC 21.49 H Hgb 13.5 L Hct 38.8 L Plt Count 116 L Sodium Potassium Chloride Carbon Dioxide BUN Creatinine Est GFR (Non-Af Amer) Glucose Albumin 1.9 L CA 19-9 Antigen Pending Urine Color Urine Appearance Urine pH Ur Specific [place] Urine Protein Urine Glucose (UA) Urine Ketones Urine Blood Urine Nitrite Ur Leukocyte Esterase Urine Bacteria (Auto) 02/01/21 02/01/21 07:02 08:30 WBC Hgb Hct Plt Count Sodium 136 Potassium 4.4 Chloride 102 Carbon Dioxide 21 BUN 82 H Creatinine 3.01 H D Est GFR (Non-Af Amer) 18.5 Glucose 196 H Albumin CA 19-9 Antigen Urine Color Dark Yellow Urine Appearance Cloudy A Urine pH 5.0 Ur Specific [place] 1.020 Urine Protein Trace H Urine Glucose (UA) Negative Urine Ketones Trace H Urine Blood Trace H Urine Nitrite Positive A Ur Leukocyte Esterase Trace H Urine Bacteria (Auto) 1+ H PG Care Time/CCT Total # of Minutes Spent Total Time Spent with Patient: Total time spent is greater than 50% in coordination of care (as documented) at patient's floor/unit and/or counseling patient: Coding Level of Care Code 86893 Inpt Consult Level 5 Diagnoses Acute kidney injury N17.9 Metastatic adenocarcinoma of unknown origin C79.9
[2021-02-01] MEDS: MoRPHine SULFATE 2 MG/ML CARP IV PRN ×2 (12:12→18:17)
[2021-02-01] MEDS ORDERED: LORazepam 0.5 MG/1 ML VIAL IV PRN (14:04)
[2021-02-01] MEDS ORDERED: ALBUT/IPRATROP 3MG/0.5MG NEB 3 ML VIAL NEB PRN (14:07)
--- NOTE | 2021-02-01 14:23 | Hospitalist Progress Note ---
Date of Service February 01, 2021 Assessment & Plan (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 of unknown origin: Plan: 80 yo M with unknown PMH presenting with chronic back pain, weight loss, found to metastatic cancer of unknown source, decompensated during hospital stay and b ecame septic with VISHNU. 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 -EUS biopsy yielded poorly differentiated adenocarcinoma, primary source uncertain- potentially pancreas, liver, biliary tree, colon -Significant metastasis to lungs and liver with noted lymphadenopathy and necrotic lesions on imaging -CA 19-9 pending to evaluate for pancreatic cancer as potential primary source, though of little value now given poor prognosis with transition to ENVIRONMENTAL CONSULTANT 2) Sepsis with VISHNU -Increasing WBCs, currently 21.5, and diffuse abdominal tenderness suggestive of intra-abdominal inflammation 2/2 infection/malignancy or from suspected pneumonia over past 2 days -BUN 82, Cr 3 -Disease course contribution from dehydration, hypoperfusion resulting in end organ damage -Currently on Cefepime and Flagyl Overall pt's prognosis very poor given current cancer grade/staging but even worse with concurrent sepsis and VISHNU. Conversation held with family members who expressed understanding of pt's course and agreed comfort measures were most appropriate intervention going forward. Pt transitioned to comfort measures only 02/01 -PRN pain control with Morphine -Continuing antibiotics to reduce inflammatory pain from abdominal infection FEN: Minced moist diet DVT ppx: none Held home meds: none Isolation: none Consults: gastroenterology, oncology, nephrology PT/OT: stopped Dispo: comfort care (2) Pulmonary nodule: (3) Duodenal disease: (4) Back pain: (5) Weight loss: (6) Concern about cancer without diagnosis: Admission and Anticipated Discharge Date Admission Date: January 24, 2021 Supervising Physician Co-Signing Physician Notes I personally examined the patient and verified all torres points of history and exam, discussed case, and agree with decision making with Dr Quevedo No meaningful HPI review of systems. Sounds presentupdated them extensively, they expressed good understanding of the situation. Vitals noted, in general he is laying in bed appearing comfortable no distress. HEENT normocephalic atraumatic mucous membranes still dry. Breathing unlabored no accessory muscle use good effort. Neuro without focal deficits. No appearance of discomfort in the roughly 45 minutes I was in the room. Metastatic poorly differentiated adenocarcinomaafter extensive discussion with familycomfort care, agree with this as the most reasonable course of action given his very unfortunate situation. Sepsis and acute renal failureafter extensive review likely abdominal source, concern biliary. Given that he is being shifted to comfort care, family does not want to pursue further studies or interventions, but would like to continue antibiotics given that reducing intra-abdominal inflammation may help mitigate painwhich seems reasonable. Deliriumappears to be from sepsis and VISHNU/dehydration Comfort care, offered empathy and support to family. Time in the room about 1 PM, time out about 1:45 PM45 minutes spent [id number]. Subjective Pt lethargic, disoriented. Occasionally nodded to questions, seemed to endorse general pain/malaise. Review of Systems Review of Systems: Unobtainable due to reduced consciousness Physical Exam Constitutional: + ill appearing and + in distress (uncomfortable) Eyes: reactive pupils ENMT: Mouth: + dry oral mucous membranes Neck: trachea midline, no thyromegaly Respiratory: normal respiratory effort, lungs clear to auscultation Cardiovascular: Rate/Rhythm: + tachycardic Gastrointestinal (Abdomen): Inspection/Auscultation: + abdomen distended Percussion/Palpation: + abdomen tender (rebound in epigastrium) Neurologic: Lethargic Results & Data Results & Data ([facility]) Vital Signs (Past 12 Hours) Vital Signs Temp Pulse Resp BP Pulse Ox 02/01/21 10:51 117 H 20 94 02/01/21 07:28 109 H 20 96 02/01/21 07:22 36.8 C 94 H 18 114/72 96 02/01/21 03:08 111 H 28 H 99 Resident Activity Tracking Resident Involvement: Resident Care Provided Care Provided: Adult Hospital Medicine
--- NOTE | 2021-02-01 17:24 | Billing Data ---
Date of Service February 01, 2021 Coding Level of Care Code 82294 Prolonged Care (int'l)
--- NOTE | 2021-02-01 17:24 | Billing Data ---
Date of Service February 01, 2021 Coding Level of Care Code 91278 Subseq Hosp Care Lvl 3
[2021-02-02] MEDS: metroNIDAZOLE 500 MG/100 ML BAG IV SCH ×3 (03:40→19:46)
[2021-02-02] MEDS: CEFEPIME 2,000 MG in SYRINGE 0 ML IV SCH (08:13)
--- NOTE | 2021-02-02 08:46 | Nephrology Progress Note ---
Date of Service February 02, 2021 Assessment & Plan (1) Acute kidney injury: (2) Metastatic adenocarcinoma of unknown origin: Plan: Plan of care discussed with primary service. They have spoken w/ Mr. Grajeda's family. Mr. Grajeda has been transitioned to comfort measures. No further Nephrology evaluation indicated at this time. Will sign off. Please call if further assistance is needed. Admission and Anticipated Discharge Date Admission Date: January 24, 2021 Results & Data ([facility]) Vital Signs (Past 12 Hours) Vital Signs Temp Pulse Resp BP Pulse Ox 02/01/21 22:34 37.3 C 109 H 16 109/68 91 Coding Level of Care Code 20347 Subseq Hosp Care Lvl 1 Diagnoses Acute kidney injury N17.9 Metastatic adenocarcinoma of unknown origin C79.9
--- NOTE | 2021-02-02 10:37 | Hospitalist Progress Note ---
Date of Service February 02, 2021 Assessment & Plan (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 of unknown origin: Plan: 80 yo M with unknown PMH presenting with chronic back pain, weight loss, found to metastatic cancer of unknown source, decompensated during hospital stay and b ecame septic with VISHNU. 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 -Poorly differentiated adenocarcinoma likely of pancreatic/biliary origin with metastasis to liver and lungs, very poor prognosis -Transitioned to WELDING PROCESS SPECIALIST on 02/01 after discussion with family and agreement palliative care was most appropriate intervention at this point given cancer grade/stage 2) Sepsis with VISHNU -Labs and exam suggestive of intra-abdominal infection -Continuing Cefepime and Flagyl to reduce inflammatory pain from infection FEN: Minced moist diet DVT ppx: none Held home meds: none Isolation: none PT/OT: stopped Dispo: comfort care (2) Pulmonary nodule: (3) Duodenal disease: (4) Back pain: (5) Weight loss: (6) Concern about cancer without diagnosis: Admission and Anticipated Discharge Date Admission Date: January 24, 2021 Supervising Physician Co-Signing Physician Notes I personally examined the patient and verified all torres points of history and exam, discussed case, and agree with decision making with Dr Quevedo No meaningful HPI review of systems. Appearing comfortable Vitals noted, in general he is laying in bed appearing comfortable no distress. HEENT normocephalic atraumatic mucous membranes still dry. Breathing unlabored no accessory muscle use good effort. Neuro without focal deficits. Metastatic poorly differentiated adenocarcinomaafter extensive discussion with familycomfort care, agree with this as the most reasonable course of action given his very unfortunate situation. He does appear comfortable at this time. Continue as needed morphine or Ativan. Sepsis and acute renal failureafter extensive review likely abdominal source, concern biliary. Given that he is being shifted to comfort care, family does not want to pursue further studies or interventions, but would like to continue antibiotics given that reducing intra-abdominal inflammation may help mitigate painwhich seems reasonable. Continue. Deliriumappears to be from sepsis and VISHNU/dehydration Given his overall decline, anticipate that he will likely pass soon. Subjective Pt lethargic but appeared comfortable without any acute distress. Minimally responsive to questions. Review of Systems Review of Systems: Other (Limited by patient's level of consciousness) Physical Exam Physical Exam: Deferred given comfort measures General: No acute distress, relaxed in bed Results & Data Results & Data ([facility]) Vital Signs (Past 12 Hours) Vital Signs Temp Pulse Resp BP Pulse Ox 02/01/21 22:34 37.3 C 109 H 16 109/68 91 Resident Activity Tracking Resident Involvement: Resident Care Provided Care Provided: Adult Hospital Medicine
[2021-02-02] MEDS: MoRPHine SULFATE 2 MG/ML CARP IV PRN (12:14)
--- NOTE | 2021-02-02 17:56 | Billing Data ---
Date of Service February 02, 2021 Coding Level of Care Code 27803 Subseq Hosp Care Lvl 2
[2021-02-03] MEDS: metroNIDAZOLE 500 MG/100 ML BAG IV SCH ×3 (03:55→19:46)
[2021-02-03] MEDS: MoRPHine SULFATE 2 MG/ML CARP IV PRN ×3 (05:17→12:59)
--- NOTE | 2021-02-03 08:06 | Hospitalist Progress Note ---
Date of Service February 03, 2021 Assessment & Plan (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 of unknown origin: Plan: 80 yo M with unknown PMH presenting with chronic back pain, weight loss, found to metastatic cancer of unknown source, decompensated during hospital stay and b ecame septic with VISHNU. 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 Discussed with family if they wanted patient to come home, family expresses concerns of if they will be able to provide adequate care at home. POA between patient's sons Nasir and Antonio, will discuss tomorrow on family's decision regarding patient care. 2) Sepsis with VISHNU -Labs and exam suggestive of intra-abdominal infection -Continuing Cefepime and Flagyl to reduce inflammatory pain from infection FEN: Minced moist diet DVT ppx: none Held home meds: none Isolation: none PT/OT: stopped Dispo: comfort care (2) Acute kidney injury: (3) Cancer, metastatic to liver: (4) Pulmonary nodule: Admission and Anticipated Discharge Date Admission Date: January 24, 2021 Supervising Physician Co-Signing Physician Notes Resident Physician Supervision Note: I independently interviewed and examined the patient and verified the torres history and physical, reviewed labs and image studies and agree with resident Dr. Martinez findings and care plan. Subjective 80yo Male with sepsis and metastatic adenocarcinoma, currently on comfort measures. He was seen laying in bed, no response to verbal stimulation. Patient appears comfortable, no facial grimace, no increase in O2 requirements. Review of Systems Review of Systems: Unobtainable due to reduced consciousness Physical Exam Physical Exam: Deferred given comfort measures General: No acute distress, relaxed in bed Results & Data Results & Data ([facility]) Vital Signs (Past 12 Hours) Vital Signs Temp Pulse Resp BP Pulse Ox 02/03/21 07:33 36.7 C 111 H 18 109/68 94 Medications Administered Current Inpatient Medications Albuterol (Albut/Ipratrop 3mg/0.5mg Neb 3 Ml Vial) 3 ml NEB Q4R PRN PRN Reason: sob Stop: 03/02/21 02:59 Metronidazole (Flagyl) 500 mg in 100 mls @ 100 mls/hr IV Q8H VICKY Stop: 02/10/21 19:59 Last Infusion: 02/03/21 14:00 Dose: Infused Documented by: Cefepime HCl 2,000 mg/ Syringe 20 mls @ 5 mls/min IV DAILY VICKY; Protocol Stop: 02/10/21 08:59 Last Admin: 02/03/21 11:20 Dose: 5 mls/min Documented by: Lorazepam (Ativan) 0.5 mg in 1 mls @ 1 mls/min IV Q2HWA PRN PRN Reason: anxiety/restlessness Stop: 03/03/21 14:03 Morphine Sulfate (Morphine Sulfate 2 Mg/Ml Carp) 2 mg IV Q1H PRN PRN Reason: pain Stop: 02/07/21 20:48 Last Admin: 02/03/21 12:59 Dose: 2 mg Documented by: Ondansetron HCl (Ondansetron Inj 2 Mg/Ml 2 Ml Vial) 4 mg IV Q6H PRN PRN Reason: Nausea Stop: 02/23/21 20:48 Resident Activity Tracking Resident Involvement: Resident Care Provided Care Provided: Adult Hospital Medicine
[2021-02-03] MEDS: CEFEPIME 2,000 MG in SYRINGE 0 ML IV SCH (11:20)
== END 2021-02-04 02:58 | disposition expired | DRG 420 ==
LOC: ED 15:29 → 3W 19:02 → SUATTDRO 19:02 → 3W 20:20